=== PATIENT | female | born 1985 | race Caucasian/White ===

== ENCOUNTER 2018-10-10 14:28 | Emergency (ER) | payer OTHER, SELFPAY ==
[2018-10-10 14:35] VITALS: BP 117/74; PULSE 89; RESP 16; TEMP 37.3; O2SAT 98; BMI 31.8
--- NOTE | 2018-10-10 14:48 | DI.CT.S_ITS ---
PROCEDURE: CT HEAD/BRAIN WO CON INDICATIONS: In ED WR: Fell on monday, remembers nothing since, now a/o TECHNIQUE: Noncontrast 4.5 mm thick angled axial sections acquired from the foramen magnum to the vertex, with coronal and sagittal reformats. For radiation dose reduction, the following was used: automated exposure control, adjustment of mA and/or kV according to patient size. COMPARISON: [facility], MR, BRAIN W&WO CONTRAST, 08/23/2016, 14:11. FINDINGS: Image quality: Excellent. CSF spaces: Basal cisterns are patent. No extra-axial fluid collections. Ventricles are normal in size and shape. Brain: No midline shift. No intracranial masses or hemorrhage. Lamb-white matter interface is normal. Skull and face: Calvarium and visualized facial bones are intact, without suspicious lesions. Sinuses: Visualized sinuses and mastoids are clear. IMPRESSION: No acute intracranial disease process. Dictated by: Anjelica Bae MD, PhD on 10/10/2018 at 15:13 Approved by: Anjelica Bae MD, PhD on 10/10/2018 at 15:17
--- NOTE | 2018-10-10 16:36 | ED.BACK ---
HPI - Back Pain/Injury <SATYA Connelly - Last Filed: 10/10/18 22:16> General Chief Complaint: Back Pain/Injury Stated Complaint: stated hit back on Sat, in extreme pain Time Seen by Provider: 10/10/18 16:36 Source: patient Mode of arrival: ambulatory Limitations: no limitations History of Present Illness HPI Narrative: 33-year-old female with history of asthma that is an everyday smoker here for complaint of having pain into her middle of her back and also having a headache. She states that Monday late she was doing laundry and she was caring out a laundry basket from the laundry room when she accidentally bumped into a 2 by for next to the door frame and the middle of her back. She states she does not know if she hit her head. Although she reports that the next day she does not recall going to bed and folding laundry as or longer became folded her next the intact memory was later that evening when she woke up in bed. She denies any nausea vomiting. No fevers no chills. She is ambulatory into the emergency room. She denies any loss of bladder or bowel control.She reports increased pain with motion of the back area. She states that her memory is intact after the 1 day episode of memory loss. She denies any other injuries. MD Complaint: back pain Related Data Previous Rx's Medication Instructions Recorded albuterol sulfate HFA 90 2 inhalation INHALATION Q4-6H PRN 10/01/18 mcg/actuation aerosol inhaler #18 gram cyclobenzaprine 10 mg tablet 10 mg PO BEDTIME #30 tab 10/01/18 epinephrine 0.3 mg/0.3 mL See Rx Instructions IM ONCE #1 each 10/01/18 injection, auto-injector fluticasone 250 mcg-salmeterol 50 1 - 2 inhalation INHALATION BID 10/01/18 mcg/dose blistr powdr for #60 each inhalation ipratropium bromide 0.03 % nasal See Rx Instructions NASAL .PRN #30 10/01/18 spray ml prednisone 10 mg tablet See Rx Instructions PO DAILY #15 10/01/18 tab Allergies Allergy/AdvReac Type Severity Reaction Status Date / Time marijuana Allergy Verified 10/10/18 14:34 Review of Systems <SATYA Connelly - Last Filed: 10/10/18 22:16> Constitutional Denies chills, Denies fever(s), Denies lethargy and Denies weakness Eyes Denies change in vision, Denies eye discharge, Denies irritation and Denies loss of vision ENT Ears, Nose, Mouth, and Throat: Denies change in voice, Denies neck pain and Denies sore throat Cardiovascular Denies chest pain, Denies irregular heart rhythm, Denies lightheadedness, Denies palpitations, Denies dyspnea, Denies dyspnea on exertion and Denies orthopnea Respiratory Denies cough, Denies dyspnea, Denies dyspnea on exertion and Denies wheezing Genitourinary Denies hematuria, Denies flank pain, Denies urinary incontinence and Denies urinary urgency Musculoskeletal Denies neck pain Comments: Back pain Integumentary/Breasts Denies pruritus, Denies erythema, Denies rash and Denies wounds Neurologic Denies confusion, Denies loss of vision and Denies weakness Comments: headache Psychiatric Denies anxiety, Denies confusion, Denies depression, Denies homicidal ideation and Denies suicidal ideation Endocrine Denies palpitations Hematologic/Lymphatic Denies easy bruising Allergic/Immunologic Denies wheezing PFSH <SATYA Connelly - Last Filed: 10/10/18 22:16> Social History Smoking Status: Current every day smoker Social History Smoking Status: Current every day smoker Exam <SATYA Connelly - Last Filed: 10/10/18 22:16> Initial Vital Signs Initial Vital Signs: Vital Signs Temperature 99.2 F 10/10/18 14:35 Pulse Rate 89 10/10/18 14:35 Respiratory Rate 16 10/10/18 14:35 Blood Pressure 117/74 10/10/18 14:35 Pulse Oximetry 98 10/10/18 14:35 Const General: cooperative and well developed Nutritional Appearance: well nourished Orientation: alert, awake, oriented x3 and not confused [facility] Head: normal to inspection, normocephalic, atraumatic, No [place]'s sign, No contusion, No hematoma, No laceration and scalp tenderness Mouth: oral mucosae normal and mucous membranes abnormal Eyes Conjunctivae: conjunctivae normal Sclera: sclerae normal Pupils: PERRL EOM: EOM intact bilaterally Resp Effort & Inspection: normal respiratory effort, able to speak in complete sentences, no respiratory distress and no use of accessory muscles Auscultation: clear to auscultation bilaterally, no rales, no rhonchi and no wheezes Cardio Rate: regular rate Rhythm: regular rhythm Heart Sounds: no click, no gallops, no murmurs and no rubs Pulses: normal peripheral pulses Back/Spine/Pelvis Other: back with no significant signs of trauma. Tenderness on palpation to the thoracic paraspinals. She is also tender to midline of the thoracic spine. Distal sensation is intact. Distal pulses are intact. Distal range of motion is intact. Skin General: no rashes or lesions noted, No jaundice and No petechiae Neuro General: alert, oriented x3, gait normal and no focal motor deficits Speech: speech normal <Vladimir Willoughby DO - Last Filed: 10/11/18 07:11> Initial Vital Signs Initial Vital Signs: Vital Signs Temperature 99.2 F 10/10/18 14:35 Pulse Rate 89 10/10/18 14:35 Respiratory Rate 16 10/10/18 14:35 Blood Pressure 117/74 10/10/18 14:35 Pulse Oximetry 98 10/10/18 14:35 Course <SATYA Connelly - Last Filed: 10/10/18 22:16> Orders Ordered: ED Orders 10/10/18 14:48 CT head/brain wo con Stat 10/10/18 16:53 XR thoracic spine 3V Stat Vital Signs - 8 hr 10/10/18 14:35 10/10/18 17:49 Temperature 99.2 F Pulse Rate 89 68 Respiratory Rate 16 14 Blood Pressure 117/74 Blood Pressure [Left Arm] 110/65 Pulse Oximetry 98 98 <DO Raul Persaud Last Filed: 10/11/18 07:11> Orders Ordered: ED Orders 10/10/18 14:48 CT head/brain wo con Stat 10/10/18 16:53 XR thoracic spine 3V Stat Vital Signs - 8 hr 10/10/18 14:35 10/10/18 17:49 Temperature 99.2 F Pulse Rate 89 68 Respiratory Rate 16 14 Blood Pressure 117/74 Blood Pressure [Left Arm] 110/65 Pulse Oximetry 98 98 MDM - Back Pain/Injury <SATYA Connelly - Last Filed: 10/10/18 22:16> Imaging Data CT scan - head: Radiologist's impression: [address] [address] [address] Scan Report Signed Patient: Manisha Moya#: [id number] : 1985Acct:[id number] Age/Sex: 33 / FDate of Service: 10/10/18 Loc: ED Accession Number: [id number] Procedure: CT head/brain wo con Ordering Provider: Vladimir Willoughby D.O. PROCEDURE: CT HEAD/BRAIN WO CON INDICATIONS: In ED WR: Fell on monday, remembers nothing since, now a/o TECHNIQUE: Noncontrast 4.5 mm thick angled axial sections acquired from the foramen magnum to the vertex, with coronal and sagittal reformats. For radiation dose reduction, the following was used: automated exposure control, adjustment of mA and/or kV according to patient size. COMPARISON: [facility], MR, BRAIN W&WO CONTRAST, 08/23/2016, 14:11. FINDINGS: Image quality: Excellent. CSF spaces: Basal cisterns are patent. No extra-axial fluid collections. Ventricles are normal in size and shape. Brain: No midline shift. No intracranial masses or hemorrhage. Lamb-white matter interface is normal. Skull and face: Calvarium and visualized facial bones are intact, without suspicious lesions. Sinuses: Visualized sinuses and mastoids are clear. IMPRESSION: No acute intracranial disease process. Dictated by: Anjelica Bae MD, PhD on 10/10/2018 at 15:13 Approved by: Anjelica Bae MD, PhD on 10/10/2018 at 15:17 Thoracic spine x-ray : Radiologist's impression: [address] [address] XRay Report Signed Patient: Manisha Moya#: [id number] : 1985Acct:[id number] Age/Sex: 33 / FDate of Service: 10/10/18 Loc: ED Accession Number: [id number] Procedure: XR thoracic spine 3V Ordering Provider: Cedric Roe PROCEDURE: XR THORACIC SPINE 3V INDICATIONS: accidentally collided with door frame on thoracic spine TECHNIQUE: 3 views of the thoracic spine were acquired. COMPARISON: None. FINDINGS: Bones: No fractures or dislocations. No suspicious bony lesions. 12 pairs of ribs are noted, and appear intact where visualized. Soft tissues: No paravertebral stripe thickening. IMPRESSION: No acute compression fracture or spondylolisthesis in thoracic spine. Dictated by: Tomasz Hernández M.D. on 10/10/2018 at 17:06 Approved by: Tomasz Hernández M.D. on 10/10/2018 at 17:07 [facility] Narrative Medical decision making narrative: CT scan of the head was obtained was unremarkable. No acute findings. X-ray of the thoracic spine was also obtained was negative for any acute findings. Suspect that there may have been a injury to the head causing concussion and subsequent short-term memory loss that occurred several days ago. Pain into back presents as sprain/contusion to her thoracic spine. Will have her continue using ibuprofen and her as already prescribed cyclobenzaprine for her symptoms. Gentle range of motion to painful areas of her back. Follow up with primary care for the next few days for re-evaluation. Head injury instructions are provided with warning signs return to the emergency room. Discharge Plan Departure Patient Disposition: Home Clinical Impression: Concussion Qualifiers: Encounter type: initial encounter Loss of consciousness presence/duration: without LOC Qualified Code(s): S06.0X0A - Concussion without loss of consciousness, initial encounter Back pain Qualifiers: Back pain location: thoracic back pain Chronicity: acute Back pain laterality: bilateral Qualified Code(s): M54.6 - Pain in thoracic spine Discharge Date/Time: 10/10/18 18:07 Interventions: ED Discharge Assessment Last Done: 10/10/18 18:07 Instructions: Concussion, Closed Head Injury, Thoracic Back Pain Activity Restrictions/Additional Instructions: CT of the head was obtained and was negative for any acute findings per x-ray of the thoracic spine was obtained was also negative for any acute findings. Believe there is a good chance that she may have hit your head causing concussion that could have given you your memory lapse for Monday. Good thing is that you have remembered everything since then. Continue using ibuprofen and muscle relaxers as needed for discomfort and muscle spasm. Rest area. Gentle range of motion to painful areas to keep muscles loose. Follow up with primary care provider here in the next few days for re-evaluation. For any worsening symptoms return emergency room. Head injury instructions are provided with warning signs return to the emergency room. Prescriptions: No Action cyclobenzaprine 10 mg tablet 10 mg PO BEDTIME Qty: 30 RF: 0 prednisone 10 mg tablet See Rx Instructions PO DAILY Qty: 15 RF: 0 epinephrine [EpiPen] 0.3 mg/0.3 mL auto-injector See Rx Instructions IM ONCE Qty: 1 RF: 0 Advair Diskus 250-50 mcg/dose blister with device 1 - 2 inhalation INHALATION BID Qty: 60 RF: 0 Ventolin HFA 90 mcg/actuation HFA aerosol inhaler 2 inhalation INHALATION Q4-6H PRN (Reason: shortness of breath) Qty: 18 RF: 0 ipratropium bromide 0.03 % spray,non-aerosol See Rx Instructions NASAL .PRN Qty: 30 RF: 0 Referrals: [facility] [Provider Group] Stand Alone Forms: Work Release Note <Vladimir Willoughby DO - Last Filed: 10/11/18 07:11> Cosign ED Attending Loc Attestation: I was available for consultation during this patient's emergency department encounter
--- NOTE | 2018-10-10 16:39 | ED_ITS ---
HPI - Back Pain/Injury <SATYA Connelly - Last Filed: 10/10/18 22:16> General Chief Complaint: Back Pain/Injury Stated Complaint: stated hit back on Sat, in extreme pain Time Seen by Provider: 10/10/18 16:36 Source: patient Mode of arrival: ambulatory Limitations: no limitations History of Present Illness HPI Narrative: 33-year-old female with history of asthma that is an everyday smoker here for complaint of having pain into her middle of her back and also having a headache. She states that Monday late she was doing laundry and she was caring out a laundry basket from the laundry room when she accidentally bumped into a 2 by for next to the door frame and the middle of her back. She states she does not know if she hit her head. Although she reports that the next day she does not recall going to bed and folding laundry as or longer became folded her next the intact memory was later that evening when she woke up in bed. She denies any nausea vomiting. No fevers no chills. She is ambulatory into the emergency room. She denies any loss of bladder or bowel control.She reports increased pain with motion of the back area. She states that her memory is intact after the 1 day episode of memory loss. She denies any other injuries. MD Complaint: back pain Related Data Previous Rx's Medication Instructions Recorded albuterol sulfate HFA 90 2 inhalation INHALATION Q4-6H PRN 10/01/18 mcg/actuation aerosol inhaler #18 gram cyclobenzaprine 10 mg tablet 10 mg PO BEDTIME #30 tab 10/01/18 epinephrine 0.3 mg/0.3 mL See Rx Instructions IM ONCE #1 each 10/01/18 injection, auto-injector fluticasone 250 mcg-salmeterol 50 1 - 2 inhalation INHALATION BID 10/01/18 mcg/dose blistr powdr for #60 each inhalation ipratropium bromide 0.03 % nasal See Rx Instructions NASAL .PRN #30 10/01/18 spray ml prednisone 10 mg tablet See Rx Instructions PO DAILY #15 10/01/18 tab Allergies Allergy/AdvReac Type Severity Reaction Status Date / Time marijuana Allergy Verified 10/10/18 14:34 Review of Systems <SATYA Connelly - Last Filed: 10/10/18 22:16> Constitutional Denies chills, Denies fever(s), Denies lethargy and Denies weakness Eyes Denies change in vision, Denies eye discharge, Denies irritation and Denies loss of vision ENT Ears, Nose, Mouth, and Throat: Denies change in voice, Denies neck pain and Denies sore throat Cardiovascular Denies chest pain, Denies irregular heart rhythm, Denies lightheadedness, Denies palpitations, Denies dyspnea, Denies dyspnea on exertion and Denies orthopnea Respiratory Denies cough, Denies dyspnea, Denies dyspnea on exertion and Denies wheezing Genitourinary Denies hematuria, Denies flank pain, Denies urinary incontinence and Denies urinary urgency Musculoskeletal Denies neck pain Comments: Back pain Integumentary/Breasts Denies pruritus, Denies erythema, Denies rash and Denies wounds Neurologic Denies confusion, Denies loss of vision and Denies weakness Comments: headache Psychiatric Denies anxiety, Denies confusion, Denies depression, Denies homicidal ideation and Denies suicidal ideation Endocrine Denies palpitations Hematologic/Lymphatic Denies easy bruising Allergic/Immunologic Denies wheezing PFSH <SATYA Connelly - Last Filed: 10/10/18 22:16> Social History Smoking Status: Current every day smoker Social History Smoking Status: Current every day smoker Exam <SATYA Connelly - Last Filed: 10/10/18 22:16> Initial Vital Signs Initial Vital Signs: Vital Signs Temperature 99.2 F 10/10/18 14:35 Pulse Rate 89 10/10/18 14:35 Respiratory Rate 16 10/10/18 14:35 Blood Pressure 117/74 10/10/18 14:35 Pulse Oximetry 98 10/10/18 14:35 Const General: cooperative and well developed Nutritional Appearance: well nourished Orientation: alert, awake, oriented x3 and not confused [facility] Head: normal to inspection, normocephalic, atraumatic, No [place]'s sign, No contusion, No hematoma, No laceration and scalp tenderness Mouth: oral mucosae normal and mucous membranes abnormal Eyes Conjunctivae: conjunctivae normal Sclera: sclerae normal Pupils: PERRL EOM: EOM intact bilaterally Resp Effort & Inspection: normal respiratory effort, able to speak in complete sentences, no respiratory distress and no use of accessory muscles Auscultation: clear to auscultation bilaterally, no rales, no rhonchi and no wheezes Cardio Rate: regular rate Rhythm: regular rhythm Heart Sounds: no click, no gallops, no murmurs and no rubs Pulses: normal peripheral pulses Back/Spine/Pelvis Other: back with no significant signs of trauma. Tenderness on palpation to the thoracic paraspinals. She is also tender to midline of the thoracic spine. Distal sensation is intact. Distal pulses are intact. Distal range of motion is intact. Skin General: no rashes or lesions noted, No jaundice and No petechiae Neuro General: alert, oriented x3, gait normal and no focal motor deficits Speech: speech normal <Vladimir Willoughby DO - Last Filed: 10/11/18 07:11> Initial Vital Signs Initial Vital Signs: Vital Signs Temperature 99.2 F 10/10/18 14:35 Pulse Rate 89 10/10/18 14:35 Respiratory Rate 16 10/10/18 14:35 Blood Pressure 117/74 10/10/18 14:35 Pulse Oximetry 98 10/10/18 14:35 Course <SATYA Connelly - Last Filed: 10/10/18 22:16> Orders Ordered: ED Orders 10/10/18 14:48 CT head/brain wo con Stat 10/10/18 16:53 XR thoracic spine 3V Stat Vital Signs - 8 hr 10/10/18 14:35 10/10/18 17:49 Temperature 99.2 F Pulse Rate 89 68 Respiratory Rate 16 14 Blood Pressure 117/74 Blood Pressure [Left Arm] 110/65 Pulse Oximetry 98 98 <DO Raul Persaud Last Filed: 10/11/18 07:11> Orders Ordered: ED Orders 10/10/18 14:48 CT head/brain wo con Stat 10/10/18 16:53 XR thoracic spine 3V Stat Vital Signs - 8 hr 10/10/18 14:35 10/10/18 17:49 Temperature 99.2 F Pulse Rate 89 68 Respiratory Rate 16 14 Blood Pressure 117/74 Blood Pressure [Left Arm] 110/65 Pulse Oximetry 98 98 MDM - Back Pain/Injury <SATYA Connelly - Last Filed: 10/10/18 22:16> Imaging Data CT scan - head: Radiologist's impression: [address] [address] [address] Scan Report Signed Patient: Manisha Moya#: [id number] : 1985Acct:[id number] Age/Sex: 33 / FDate of Service: 10/10/18 Loc: ED Accession Number: [id number] Procedure: CT head/brain wo con Ordering Provider: Vladimir Willoughby D.O. PROCEDURE: CT HEAD/BRAIN WO CON INDICATIONS: In ED WR: Fell on monday, remembers nothing since, now a/o TECHNIQUE: Noncontrast 4.5 mm thick angled axial sections acquired from the foramen magnum to the vertex, with coronal and sagittal reformats. For radiation dose reduction, the following was used: automated exposure control, adjustment of mA and/or kV according to patient size. COMPARISON: [facility], MR, BRAIN W&WO CONTRAST, 08/23/2016, 14:11. FINDINGS: Image quality: Excellent. CSF spaces: Basal cisterns are patent. No extra-axial fluid collections. Ventricles are normal in size and shape. Brain: No midline shift. No intracranial masses or hemorrhage. Lamb-white matter interface is normal. Skull and face: Calvarium and visualized facial bones are intact, without suspicious lesions. Sinuses: Visualized sinuses and mastoids are clear. IMPRESSION: No acute intracranial disease process. Dictated by: Anjelica Bae MD, PhD on 10/10/2018 at 15:13 Approved by: Anjelica Bae MD, PhD on 10/10/2018 at 15:17 Thoracic spine x-ray : Radiologist's impression: [address] [address] XRay Report Signed Patient: Manisha Moya#: [id number] : 1985Acct:[id number] Age/Sex: 33 / FDate of Service: 10/10/18 Loc: ED Accession Number: [id number] Procedure: XR thoracic spine 3V Ordering Provider: Cedric Roe PROCEDURE: XR THORACIC SPINE 3V INDICATIONS: accidentally collided with door frame on thoracic spine TECHNIQUE: 3 views of the thoracic spine were acquired. COMPARISON: None. FINDINGS: Bones: No fractures or dislocations. No suspicious bony lesions. 12 pairs of ribs are noted, and appear intact where visualized. Soft tissues: No paravertebral stripe thickening. IMPRESSION: No acute compression fracture or spondylolisthesis in thoracic spine. Dictated by: Tomasz Hernández M.D. on 10/10/2018 at 17:06 Approved by: Tomasz Hernández M.D. on 10/10/2018 at 17:07 [facility] Narrative Medical decision making narrative: CT scan of the head was obtained was unremarkable. No acute findings. X-ray of the thoracic spine was also obtained was negative for any acute findings. Suspect that there may have been a injury to the head causing concussion and subsequent short-term memory loss that occurred several days ago. Pain into back presents as sprain/contusion to her thoracic spine. Will have her continue using ibuprofen and her as already prescribed cyclobenzaprine for her symptoms. Gentle range of motion to painful areas of her back. Follow up with primary care for the next few days for re- evaluation. Head injury instructions are provided with warning signs return to the emergency room. Discharge Plan Departure Patient Disposition: Home Clinical Impression: Concussion Qualifiers: Encounter type: initial encounter Loss of consciousness presence/duration: without LOC Qualified Code(s): S06.0X0A - Concussion without loss of consciousness, initial encounter Back pain Qualifiers: Back pain location: thoracic back pain Chronicity: acute Back pain laterality: bilateral Qualified Code(s): M54.6 - Pain in thoracic spine Discharge Date/Time: 10/10/18 18:07 Interventions: ED Discharge Assessment Last Done: 10/10/18 18:07 Instructions: Concussion, Closed Head Injury, Thoracic Back Pain Activity Restrictions/Additional Instructions: CT of the head was obtained and was negative for any acute findings per x-ray of the thoracic spine was obtained was also negative for any acute findings. Believe there is a good chance that she may have hit your head causing concussion that could have given you your memory lapse for Monday. Good thing is that you have remembered everything since then. Continue using ibuprofen and muscle relaxers as needed for discomfort and muscle spasm. Rest area. Gentle range of motion to painful areas to keep muscles loose. Follow up with primary care provider here in the next few days for re-evaluation. For any worsening symptoms return emergency room. Head injury instructions are provided with warning signs return to the emergency room. Prescriptions: No Action cyclobenzaprine 10 mg tablet 10 mg PO BEDTIME Qty: 30 RF: 0 prednisone 10 mg tablet See Rx Instructions PO DAILY Qty: 15 RF: 0 epinephrine [EpiPen] 0.3 mg/0.3 mL auto-injector See Rx Instructions IM ONCE Qty: 1 RF: 0 Advair Diskus 250-50 mcg/dose blister with device 1 - 2 inhalation INHALATION BID Qty: 60 RF: 0 Ventolin HFA 90 mcg/actuation HFA aerosol inhaler 2 inhalation INHALATION Q4-6H PRN (Reason: shortness of breath) Qty: 18 RF: 0 ipratropium bromide 0.03 % spray,non-aerosol See Rx Instructions NASAL .PRN Qty: 30 RF: 0 Referrals: [facility] [Provider Group] Stand Alone Forms: Work Release Note <Vladimir Willoughby DO - Last Filed: 10/11/18 07:11> Cosign ED Attending Loc Attestation: I was available for consultation during this patient's emergency department encounter
--- NOTE | 2018-10-10 16:42 | PC.NURSE ---
pt reports that five days ago she bumped into a 2x4 that struck her in the lower back. Since that time she c/o waxing/waning lt side arm/facial numbness, generalized headache, nausea, photophobia, visual changes that she describes as lines of triangles, and midline back pain that on exam is tender for the entire length of her spine with very light palpation. She also states that there is a 24 hour period one day following the event of which she has no memory. She is ambulatory ind with a steady gait, moving all ext with equal strength, limited participation in exam r/t unable to open eyes without discomfort/headache, alert/oriented x3 without obvious neurological deficit.
--- NOTE | 2018-10-10 16:53 | DI.RAD.S_ITS ---
PROCEDURE: XR THORACIC SPINE 3V INDICATIONS: accidentally collided with door frame on thoracic spine TECHNIQUE: 3 views of the thoracic spine were acquired. COMPARISON: None. FINDINGS: Bones: No fractures or dislocations. No suspicious bony lesions. 12 pairs of ribs are noted, and appear intact where visualized. Soft tissues: No paravertebral stripe thickening. IMPRESSION: No acute compression fracture or spondylolisthesis in thoracic spine. Dictated by: Tomasz Hernández M.D. on 10/10/2018 at 17:06 Approved by: Tomasz Hernández M.D. on 10/10/2018 at 17:07
[2018-10-10 17:49] VITALS: BP 110/65; PULSE 68; RESP 14; O2SAT 98
== END 2018-10-10 18:07 | disposition home or self-care (01) ==
PROVIDERS: Emergency Provider Nurse Practitioner Family; Family Provider Physician Assistant Medical
DX: S06.0X0A Concussion without loss of consciousness, initial encounter (principal); M54.16 Radiculopathy, lumbar region; W22.8XXA Striking against or struck by other objects, initial encounter
CPT/HCPCS: 70450; 72072; 99282; 99284

== ENCOUNTER 2019-08-21 08:05 | Emergency (ER) | payer OTHER, SELFPAY ==
[2019-08-21 08:12] VITALS: BP 129/74; PULSE 86; RESP 16; TEMP 36.9; O2SAT 99; BMI 32.4
--- NOTE | 2019-08-21 08:27 | DI.US.S_ITS ---
PROCEDURE: US ABDOMEN LIMITED INDICATIONS: Left groin pain, ? hernia TECHNIQUE: Real-time focused scanning was performed of the abdomen, with image documentation. COMPARISON: [facility], , ABDOMEN COMPLETE, 07/25/2016, 10:39. FINDINGS: Scanning is performed within the left lower quadrant/left groin at the area of pain, as indicated by the patient. No findings of hernia or masses can be seen, including with Valsalva maneuver. No enlarged lymph nodes or fluid collections are detected. IMPRESSION: Negative study, without hernia. Dictated by: Arthur Danielle M.D. on 08/21/2019 at 8:17 Approved by: Arthur Danielle M.D. on 08/21/2019 at 8:18
--- NOTE | 2019-08-21 08:28 | ED.ABDPAIN ---
HPI - Abdominal Pain General Chief Complaint: Abdominal Pain Stated Complaint: cough real bad and left side of groin hurts Time Seen by Provider: 08/21/19 08:17 Source: patient and old records reviewed Mode of arrival: Ambulatory Limitations: no limitations History of Present Illness HPI narrative: This is a 34-year-old female who comes to the emergency department with complaint of left groin pain. Patient states she has had a cough from upper respiratory infection for the last several weeks. Yesterday she was coughing particularly hard and felt sudden pain in the left groin. She states that she felt sort of like there was a lump but she can't feel or see a lump. Patient states every time she coughs she has significant discomfort in that area. She states she also thought that she had pulled a rib recently from coughing. Patient states that the pain does radiate down her leg towards her toes. She denies any new back pain or changes to her back pain but states she has chronic back issues. She states the pain doesn't seem to be coming from her back or hip. Patient denies fevers. Denies any other chest pain. She occasionally feels short of breath and has been using her inhaler more frequently secondary to her asthma flaring. She states that she doesn't feel like she is wheezy or tight at this time. She denies any issues with bowel movements or urination. No redness or other skin changes. She states she has had dental work but no prior surgeries otherwise. States she has history of asthma and, states when she drinks water and certain foods it always makes her vomit but she can eat other foods without issue she states this is a longstanding chronic issue. Related Data Previous Rx's Medication Instructions Recorded albuterol sulfate 90 mcg/actuation 2 inhalation INHALATION Q4-6H PRN 10/01/18 aerosol inhaler #18 gram cyclobenzaprine 10 mg tablet 10 mg PO BEDTIME #30 tab 10/01/18 epinephrine 0.3 mg/0.3 mL See Rx Instructions IM ONCE #1 each 10/01/18 injection, auto-injector fluticasone 250 mcg-salmeterol 50 1 - 2 inhalation INHALATION BID 10/01/18 mcg/dose blistr powdr for #60 each inhalation ipratropium bromide 0.03 % nasal See Rx Instructions NASAL .PRN #30 10/01/18 spray ml prednisone 10 mg tablet See Rx Instructions PO DAILY #15 10/01/18 tab acetaminophen-codeine 1 tab PO TID PRN #10 tab 08/21/19 [Tylenol-Codeine #3] Allergies Allergy/AdvReac Type Severity Reaction Status Date / Time marijuana Allergy Verified 08/21/19 08:28 Review of Systems Review of Systems ROS Unobtainable: All systems reviewed & are unremarkable except as noted in HPI and below Patient History Social History Smoking Status: Current every day smoker Smoking Status: Current every day smoker Exam Narrative Exam Narrative: GENERAL: Alert and oriented x three, moderately obese, well-appearing female in mild distress. HEENT: Head normocephalic, atraumatic, EOMI, pupils reactive, face symmetric, moist mucous membranes NECK: Supple, full range of motion CARDIOVASCULAR: Regular rate and rhythm without murmurs, rubs or gallops. RESPIRATORY: Breath sounds equal bilaterally, no wheezes rales or rhonchi. ABDOMEN: Soft, nontender except for moderate discomfort in the left inguinal region. Unable to palpate a hernia or mass and discomfort radiates into upper thigh. Normoactive bowel sounds all 4 quadrants. No guarding or rebound, rigidity, no mass : No CVA tenderness EXTREMITIES: Normal range of motion, patient is nontender to hip. Patient does have some increased pain with bending over and flexing at the hip on the left. No clubbing or edema. Neurovascularly intact. 2+ pulses bilaterally. No cyanosis, no pallor or erythema of the lower extremity. BACK: No cervical, thoracic or lumbar vertebral point tenderness. 5/5 muscle strength in lower extremities. NEUROLOGICAL: Cranial nerves II through XII grossly intact. Moving all extremities SKIN: Warm, dry, no petechiae, no rashes or lesions. Initial Vital Signs Initial Vital Signs: Vital Signs Temperature 98.4 F 08/21/19 08:12 Pulse Rate 86 08/21/19 08:12 Respiratory Rate 16 08/21/19 08:12 Blood Pressure 129/74 08/21/19 08:12 Pulse Oximetry 99 08/21/19 08:12 Course Orders Ordered: ED Orders 08/21/19 08:27 US abdomen limited Stat 08/21/19 08:41 Complete Blood Count AUTO DIFF Stat Comprehensive Metabolic Panel Stat Lipase Stat 08/21/19 09:30 Test Urine Stat Urinalysis and Microscopic Stat Urine Culture Stat Discontinued Medications Sodium Chloride (Normal Saline 0.9%) 1,000 mls @ 1,000 mls/hr IV BOLUS ONE Stop: 08/21/19 09:26 Last Infusion: 08/21/19 09:40 Dose: 0 mls/hr Documented by: Admin: 08/21/19 08:46 Dose: 1,000 mls/hr Documented by: PENELOPE Ketorolac Tromethamine (Toradol) 30 mg IV NOW ONE Stop: 08/21/19 08:28 Last Admin: 08/21/19 08:46 Dose: 30 mg Documented by: PENELOPE Vital Signs Vital signs: Vital Signs - 8 hr 08/21/19 08:12 08/21/19 09:57 Temperature 98.4 F Pulse Rate 86 84 Respiratory Rate 16 16 Blood Pressure 129/74 117/84 Pulse Oximetry 99 97 MDM - Abdominal Pain Lab Data Attestation: I reviewed the patient's lab results. Result diagrams: 08/21/19 08:41 08/21/19 08:41 Labs: Lab Results 08/21/19 08/21/19 08/21/19 Range/Units 08:41 08:41 09:30 WBC 11.5 H (4.5-11.0) X10^3/uL RBC 4.40 (4.0-5.2) X10^6/uL Hgb 12.7 (12.0-16.0) g/dL Hct 38.0 (36-46) % MCV 86.3 (80-100) fL MCH 29.0 (26-34) PG MCHC 33.6 (30-36) % RDW 14.4 (11.6-14.8) % Plt Count 314 (150-400) X10^3/uL Neut % (Auto) 73.6 (50-75) % Lymph % (Auto) 17.9 L (25-40) % [place] % (Auto) 6.7 (3-14) % Eos % (Auto) 1.4 L (2-4) % Baso % (Auto) 0.4 (0-2) % Neut # (Auto) 8400 H (6501-7755) /uL Lymph # (Auto) 2100 (7330-8908) /uL [place] # (Auto) 800 (0-900) /uL Eos # (Auto) 200 (0-450) /uL Baso # (Auto) 100 (0-100) /uL Sodium 139 (137-145) mmol/L Potassium 3.9 (3.4-5.1) mmol/L Chloride 105 (98-107) mmol/L Carbon Dioxide 25 (22-32) mmol/L BUN 16 (7-17) mg/dL Creatinine 0.70 (0.52-1.04) mg/dL Estimated GFR > 60.0 (>60) mL/min BUN/Creatinine Ratio 22.9 H (6-22) Glucose 93 (70-100) mg/dL Calcium 9.0 (8.4-10.2) mg/dL Total Bilirubin 0.4 (0.2-1.3) mg/dL AST 33 (14-36) IU/L ALT 35 H (<35) IU/L Alkaline Phosphatase 82 (38-126) U/L Total Protein 7.2 (6.3-8.2) g/dL Albumin 4.3 (3.5-5.0) g/dL Globulin 2.9 (1.7-4.1) g/dL Albumin/Globulin Ratio 1.5 (1.0-2.8) Lipase 48 (23-300) U/L Urine Color Yellow Urine Appearance Sl cloudy Urine pH 5.0 (4.5-8.0) Ur Specific [place] 1.025 (1.000-1.035) Urine Protein Negative (Negative) Urine Glucose (UA) Negative (Negative) g/dL Urine Ketones Negative (NEGATIVE) Urine Occult Blood 2+ H (Negative) Urine Nitrate Negative (Negative) Urine Bilirubin Negative (NEGATIVE) Urine Urobilinogen 0.2 (0.2) E.U./dL Ur Leukocyte Esterase 1+ H (NEGATIVE) Urine RBC 1-5/hpf (0-5/HPF) Urine WBC 10-30/hpf H (0-5/HPF) Ur Squamous Epith Cells 1-5 /hpf (0-5/HPF) Urine Bacteria Moderate (10-30) H (None) Ur Culture Indicated? Specimen cultured Urine Test (Negative) 08/21/19 Range/Units 09:30 WBC (4.5-11.0) X10^3/uL RBC (4.0-5.2) X10^6/uL Hgb (12.0-16.0) g/dL Hct (36-46) % MCV (80-100) fL MCH (26-34) PG MCHC (30-36) % RDW (11.6-14.8) % Plt Count (150-400) X10^3/uL Neut % (Auto) (50-75) % Lymph % (Auto) (25-40) % [place] % (Auto) (3-14) % Eos % (Auto) (2-4) % Baso % (Auto) (0-2) % Neut # (Auto) (3788-5292) /uL Lymph # (Auto) (4589-7644) /uL [place] # (Auto) (0-900) /uL Eos # (Auto) (0-450) /uL Baso # (Auto) (0-100) /uL Sodium (137-145) mmol/L Potassium (3.4-5.1) mmol/L Chloride (98-107) mmol/L Carbon Dioxide (22-32) mmol/L BUN (7-17) mg/dL Creatinine (0.52-1.04) mg/dL Estimated GFR (>60) mL/min BUN/Creatinine Ratio (6-22) Glucose (70-100) mg/dL Calcium (8.4-10.2) mg/dL Total Bilirubin (0.2-1.3) mg/dL AST (14-36) IU/L ALT (<35) IU/L Alkaline Phosphatase (38-126) U/L Total Protein (6.3-8.2) g/dL Albumin (3.5-5.0) g/dL Globulin (1.7-4.1) g/dL Albumin/Globulin Ratio (1.0-2.8) Lipase (23-300) U/L Urine Color Urine Appearance Urine pH (4.5-8.0) Ur Specific [place] (1.000-1.035) Urine Protein (Negative) Urine Glucose (UA) (Negative) g/dL Urine Ketones (NEGATIVE) Urine Occult Blood (Negative) Urine Nitrate (Negative) Urine Bilirubin (NEGATIVE) Urine Urobilinogen (0.2) E.U./dL Ur Leukocyte Esterase (NEGATIVE) Urine RBC (0-5/HPF) Urine WBC (0-5/HPF) Ur Squamous Epith Cells (0-5/HPF) Urine Bacteria (None) Ur Culture Indicated? Urine Test Negative (Negative) Imaging Data US - abdomen: Radiologist's Impression: [address] [address] Ultrasound Report Signed Patient: Manisha Moya#: [id number] : 1985Acct:[id number] Age/Sex: 34 / FDate of Service: 08/21/19 Loc: ED Accession Number: [id number] Procedure: US abdomen limited Ordering Provider: Katja Segura D.O. PROCEDURE: US ABDOMEN LIMITED INDICATIONS: Left groin pain, ? hernia TECHNIQUE: Real-time focused scanning was performed of the abdomen, with image documentation. COMPARISON: [facility], , ABDOMEN COMPLETE, 07/25/2016, 10:39. FINDINGS: Scanning is performed within the left lower quadrant/left groin at the area of pain, as indicated by the patient. No findings of hernia or masses can be seen, including with Valsalva maneuver. No enlarged lymph nodes or fluid collections are detected. MDM Narrative Medical decision making narrative: Ultrasound does not show any signs of hernia. Patient also has pain that radiates down her legs I suspect this is more related to chronic back issues in coughing and muscle strain potentially some nerve impingement. Discussed with patient plan for some pain control. Patient was given some Tylenol with codeine as this may be helpful for her cough as well as pain. She does not have any findings consistent with pneumonia or the require antibiotics at this time. Discussed labs show very mildly elevated white count, ALT of 35. urine was cultured shows leuks but no nitrates, urine preg is negative. Discharge Plan Departure Patient Disposition: Home Clinical Impression: Left groin pain, Cough Discharge Date/Time: 08/21/19 09:59 Activity Restrictions/Additional Instructions: Follow-up with primary care in the next week if your symptoms are not improving. Lab work does not show any major abnormalities, ultrasound imaging does not show any signs of hernia and there is no one noted on physical exam today. Take medication as prescribed this medication can make you sleepy do not drive, perform hazardous activities or make any major decisions while taking it. You may also take ibuprofen with this medication, you may take up to 800 mg every 8 hours as needed. You may return to the emergency department for fevers greater 100.4 F, rapidly worsening pain, new shortness of breath or chest pain, persistent vomiting, inability have a bowel movement, new weakness, numbness, loss of sensation or other new or concerning symptoms. Prescriptions: New acetaminophen-codeine [Tylenol-Codeine #3] 300-30 mg tablet 1 tab PO TID PRN (Reason: pain) Qty: 10 RF: 0 No Action cyclobenzaprine 10 mg tablet 10 mg PO BEDTIME Qty: 30 RF: 0 prednisone 10 mg tablet See Rx Instructions PO DAILY Qty: 15 RF: 0 epinephrine [EpiPen] 0.3 mg/0.3 mL auto-injector See Rx Instructions IM ONCE Qty: 1 RF: 0 Advair Diskus 250-50 mcg/dose blister with device 1 - 2 inhalation INHALATION BID Qty: 60 RF: 0 Ventolin HFA 90 mcg/actuation HFA aerosol inhaler 2 inhalation INHALATION Q4-6H PRN (Reason: shortness of breath) Qty: 18 RF: 0 ipratropium bromide 0.03 % spray,non-aerosol See Rx Instructions NASAL .PRN Qty: 30 RF: 0
[2019-08-21] MEDS: KETOROLAC 60 MG/2 ML VIAL 30 MG IV (08:46)
[2019-08-21] MEDS: SODIUM CHLORIDE 0.9% 1,000 ML 1000 ML IV (08:46)
[2019-08-21 08:48] LABS: Add Manual Diff / Slide Review NO; Basophils Absolute Auto 100 /uL (0-100); Basophils Percent Auto 0.4 % (0-2); Eosinophils Absolute Auto 200 /uL (0-450); Eosinophils Percent Auto 1.4 % (2-4); Hemoglobin 12.7 g/dL (12.0-16.0); Lymphocytes Absolute Auto 2100 /uL (1100-4500); Lymphocytes Percent Auto 17.9 % (25-40); Mean Corpuscular HGB Conc 33.6 % (30-36); Mean Corpuscular Volume 86.3 fL (80-100); Monocytes Absolute Auto 800 /uL (0-900); Monocytes Percent Auto 6.7 % (3-14); Neutrophils Absolute Auto 8400 /uL (1500-7000); Neutrophils Percent Auto 73.6 % (50-75); Platelet Count 314 X10^3/uL (150-400); Red Cell Distribution Width 14.4 % (11.6-14.8); White Blood Cell Count 11.5 X10^3/uL (4.5-11.0)
[2019-08-21 08:58] LABS: Alanine Aminotransferase 35 IU/L (<35); Albumin 4.3 g/dL (3.5-5.0); Albumin Globulin Ratio 1.5 (1.0-2.8); Alkaline Phosphatase 82 U/L (38-126); Aspartate Aminotransferase 33 IU/L (14-36); BUN Creatinine Ratio 22.9 (6-22); Bilirubin Total 0.4 mg/dL (0.2-1.3); Blood Urea Nitrogen 16 mg/dL (7-17); Carbon Dioxide 25 mmol/L (22-32); Chloride 105 mmol/L (98-107); Estimated Glomerular Filt Rate > 60.0 mL/min (>60); Globulin 2.9 g/dL (1.7-4.1); Glucose 93 mg/dL (70-100); HEMOLYSIS < 15 (0-50); Lipase 48 U/L (23-300); Potassium 3.9 mmol/L (3.4-5.1); Sodium 139 mmol/L (137-145); Total Protein 7.2 g/dL (6.3-8.2)
[2019-08-21 09:37] LABS: Appearance Urine UA SL CLOUDY; Bilirubin Urine UA NEGATIVE (NEGATIVE); Color Urine UA YELLOW; Glucose Urine UA NEGATIVE (Negative); Ketones Urine UA NEGATIVE (NEGATIVE); Leukocyte Esterase Urine UA 1+ (NEGATIVE); Nitrite Urine UA NEGATIVE (Negative); Occult Blood Urine UA 2+ (Negative); Protein Urine UA NEGATIVE (Negative); Specific Gravity Urine UA 1.025 (1.000-1.035); Urobilinogen Urine UA 0.2 E.U./dL (0.2)
[2019-08-21 09:46] LABS: Bacteria Urine Moderate (10-30); Culture Indicated Urine Specimen Cultured; RBC Urine 1-5/HPF (0-5/HPF); Squamous Epithelial Cell Urine 1-5 /HPF (0-5/HPF); WBC Urine 10-30/HPF (0-5/HPF)
[2019-08-21 09:47] LABS: Pregnancy Test Urine Negative (Negative)
[2019-08-21 09:57] VITALS: BP 117/84; PULSE 84; RESP 16; O2SAT 97
== END 2019-08-21 09:59 | disposition home or self-care (01) ==
PROVIDERS: Emergency Provider Emergency Medicine; Family Provider Physician Assistant Medical
DX: R10.32 Left lower quadrant pain (principal); R05 Cough; R11.10 Vomiting, unspecified
CPT/HCPCS: 36415; 76705; 80053; 81001; 81025; 83690; 85025; 87086; 96361; 96374; 99284; J1885

== ENCOUNTER 2019-08-24 03:51 | Emergency (ER) | payer OTHER, SELFPAY ==
[2019-08-24 03:57] VITALS: BP 129/52; PULSE 100; RESP 20; TEMP 37.9; O2SAT 97
--- NOTE | 2019-08-24 03:59 | DI.RAD.S_ITS ---
PROCEDURE: XR CHEST 2V INDICATIONS: cough, fever TECHNIQUE: 2 views of the chest were acquired. COMPARISON: None. FINDINGS: Surgical changes and devices: None. Lungs and pleura: Lungs are clear. No pleural effusions or pneumothorax. Mediastinum: Mediastinal contours are normal. Heart size is normal. Bones and chest wall: No suspicious bony abnormalities. Soft tissues appear unremarkable. IMPRESSION: Normal chest plain films, without infiltrates. Dictated by: Arthur Danielle M.D. on 08/24/2019 at 8:45 Approved by: Arthur Danielle M.D. on 08/24/2019 at 8:46
--- NOTE | 2019-08-24 03:59 | ED.FEVER ---
HPI - Fever General Chief Complaint: Upper Respiratory Symptoms Stated Complaint: coughing/feels like pins and needles everywhere Time Seen by Provider: 08/24/19 03:52 Source: patient Mode of arrival: Ambulatory Limitations: no limitations History of Present Illness HPI Narrative: 34-year-old female daily smoker returns to the emergency department for re-evaluation. She has multiple upper respiratory complaints including nasal congestion, sore throat, cough which is usually dry and hacking as well as general fatigue and body aches. She denies dysuria, frequency or urgency and she denies any change in bowel habits such as constipation or diarrhea. She has no vaginal bleeding or discharge. She was seen and evaluated a few days ago after having a coughing fit which resulted in a sudden onset of pain in her left groin and it complaints and concern of possible hernia. She had a very thorough evaluation including labs that showed a mild leukocytosis, and ultrasound which was unremarkable, urine that showed minor leuks which cultured out [place]. She feels fatigued and a bit under the weather and certainly no better. She states largely her symptoms have been present for approximately 1 month MD complaint: malaise and weakness Onset (ago): week(s) Associated symptoms: chills, myalgias, rhinorrhea, nasal congestion, sore throat, cough and abdominal pain Relieving factors: nothing Exacerbating factors: nothing Treatments prior to arrival fever: none Related Data Previous Rx's Medication Instructions Recorded albuterol sulfate 90 mcg/actuation 2 inhalation INHALATION Q4-6H PRN 10/01/18 aerosol inhaler #18 gram cyclobenzaprine 10 mg tablet 10 mg PO BEDTIME #30 tab 10/01/18 epinephrine 0.3 mg/0.3 mL See Rx Instructions IM ONCE #1 each 10/01/18 injection, auto-injector fluticasone 250 mcg-salmeterol 50 1 - 2 inhalation INHALATION BID 10/01/18 mcg/dose blistr powdr for #60 each inhalation ipratropium bromide 0.03 % nasal See Rx Instructions NASAL .PRN #30 10/01/18 spray ml prednisone 10 mg tablet See Rx Instructions PO DAILY #15 10/01/18 tab acetaminophen-codeine 1 tab PO TID PRN #10 tab 08/21/19 [Tylenol-Codeine #3] codeine-guaifenesin [Virtussin AC] 5 ml PO Q6H PRN #120 ml 08/24/19 ondansetron 4 mg PO Q8H PRN #7 tab 08/24/19 Allergies Allergy/AdvReac Type Severity Reaction Status Date / Time marijuana Allergy Verified 08/21/19 08:28 Review of Systems Constitutional Constitutional: Reports chills, Reports fatigue, Reports fever(s), Denies frequent falls, Denies lethargy and Reports weakness Eyes Eyes: Denies change in vision, Denies eye discharge, Denies irritation and Denies loss of vision ENT Ears, Nose, Mouth, and Throat: Denies change in voice, Denies dizziness, Reports nasal congestion, Denies neck pain and Reports sore throat Cardiovascular Cardiovascular: Denies chest pain, Denies irregular heart rhythm, Denies lightheadedness, Denies palpitations, Denies dyspnea, Denies dyspnea on exertion and Denies orthopnea Respiratory Respiratory: Reports cough, Denies dyspnea, Denies dyspnea on exertion and Denies wheezing Gastrointestinal Gastrointestinal: Denies abdominal pain (Left groin pain present with cough), Denies change in bowel habits, Denies diarrhea, Denies nausea and Denies vomiting Genitourinary Genitourinary: Denies hematuria, Denies flank pain, Denies urinary incontinence and Denies urinary urgency Musculoskeletal Musculoskeletal: Denies back pain, Denies muscle weakness, Denies neck pain, Denies numbness and Denies tingling Integumentary/Breasts Skin/Breast: Denies pruritus, Denies erythema, Denies rash and Denies wounds Neurologic Neurologic: Denies behavioral changes, Denies confusion, Denies dizziness, Denies frequent falls, Denies loss of vision, Denies numbness, Denies tingling and Reports weakness Psychiatric Psychiatric: Denies anxiety, Denies behavioral changes, Denies confusion, Denies depression, Denies homicidal ideation and Denies suicidal ideation Endocrine Endocrine: Reports fatigue, Denies flushing and Denies palpitations Hematologic/Lymphatic Hematologic/Lymphatic: Denies easy bruising Allergic/Immunologic Allergic/Immunologic: Denies urticaria and Denies wheezing Patient History Social History Smoking Status: Current every day smoker Smoking Status: Current every day smoker alcohol intake frequency: holidays/special occasions only Substance Use Type: does not use Exam Narrative Exam Narrative: GENERAL: [34] year old patient appears stated age. Well-nourished, well-developed patient, in mild distress. Sneezing, coughing. HEAD: Atraumatic. Normocephalic. EYES: Pupils equal round and reactive. Extraocular motions intact. No scleral icterus. No injection or drainage. ENT: Nose without bleeding, purulent drainage, clear drainage B/L nares. Throat with minimal erythema and swelling of tonsils. Airway patent. NECK: Trachea midline. Non tender CARDIOVASCULAR: Regular rate and rhythm without murmurs, gallops, or rubs. RESPIRATORY: Mild expiratory wheeze GASTROINTESTINAL: Abdomen soft, moderate tenderness in left groin, no mass. nondistended. EXTREMITIES: No edema or joint tenderness. BACK: Nontender without deformity or crepitance. No flank tenderness. NEURO: AOx3. SKIN: No rash or erythema of visible areas Initial Vital Signs Initial Vital Signs: Vital Signs Temperature 100.2 F H 08/24/19 03:57 Pulse Rate 100 H 08/24/19 03:57 Respiratory Rate 20 08/24/19 03:57 Blood Pressure 129/52 L 08/24/19 03:57 Pulse Oximetry 97 08/24/19 03:57 Course Orders Ordered: Discontinued Medications Ketorolac Tromethamine (Toradol) 60 mg IM NOW ONE Stop: 08/24/19 04:26 Last Admin: 08/24/19 04:31 Dose: 60 mg Documented by: DOTTY Vital Signs Vital signs: Vital Signs - 8 hr 08/24/19 03:57 Temperature 100.2 F H Pulse Rate 100 H Respiratory Rate 20 Blood Pressure 129/52 L Pulse Oximetry 97 MDM - Fever Lab Data Labs: Lab Results 08/24/19 Range/Units 04:00 Influenza A (RT-PCR) Flu a negative (NEGATIVE) Influenza B (RT-PCR) Flu b positive H (NEGATIVE) Point of Care Testing Rapid Strep A Negative Discharge Plan Departure Patient Disposition: Home Clinical Impression: Influenza B Discharge Date/Time: 08/24/19 05:14 Instructions: DI for Influenza -- Adult Activity Restrictions/Additional Instructions: *You have been diagnosed with [influenza B] *What to do: *Take medications as directed: [facility] *Follow up with your primary care provider in 2-3 days, call for an appointment. Let them know you were seen in the Emergency Department and that we ask that you be seen in follow up *Return to ER if you should have any new, worsening or concerning symptoms Prescriptions: New codeine-guaifenesin [Virtussin AC] 10-100 mg/5 mL liquid 5 ml PO Q6H PRN (Reason: cough) Qty: 120 RF: 0 ondansetron 4 mg tablet,disintegrating 4 mg PO Q8H PRN (Reason: nausea and vomiting) Qty: 7 RF: 0 No Action cyclobenzaprine 10 mg tablet 10 mg PO BEDTIME Qty: 30 RF: 0 prednisone 10 mg tablet See Rx Instructions PO DAILY Qty: 15 RF: 0 epinephrine [EpiPen] 0.3 mg/0.3 mL auto-injector See Rx Instructions IM ONCE Qty: 1 RF: 0 Advair Diskus 250-50 mcg/dose blister with device 1 - 2 inhalation INHALATION BID Qty: 60 RF: 0 Ventolin HFA 90 mcg/actuation HFA aerosol inhaler 2 inhalation INHALATION Q4-6H PRN (Reason: shortness of breath) Qty: 18 RF: 0 ipratropium bromide 0.03 % spray,non-aerosol See Rx Instructions NASAL .PRN Qty: 30 RF: 0 acetaminophen-codeine [Tylenol-Codeine #3] 300-30 mg tablet 1 tab PO TID PRN (Reason: pain) Qty: 10 RF: 0 Referrals: [facility] [Outside]
[2019-08-24] MEDS: KETOROLAC 60 MG/2 ML VIAL IM (04:31)
[2019-08-24 04:35] LABS: Influenza A - CEPHEID Flu A NEGATIVE (NEGATIVE); Influenza B - CEPHEID Flu B POSITIVE (NEGATIVE)
[2019-08-24 05:13] VITALS: BP 114/56; PULSE 82; RESP 17; O2SAT 94
== END 2019-08-24 05:14 | disposition home or self-care (01) ==
PROVIDERS: Emergency Provider Emergency Medicine; Family Provider Physician Assistant Medical
DX: J10.1 Influenza due to other identified influenza virus with other respiratory manifestations (principal); R05 Cough; F17.200 Nicotine dependence, unspecified, uncomplicated
CPT/HCPCS: 71046; 87502; 87880; 96372; 99283; J1885

== ENCOUNTER → 2019-08-30 08:48 | Outpatient (CLI) | payer OTHER, SELFPAY ==
[2019-08-30 09:50] LABS: Add Manual Diff / Slide Review NO; Basophils Absolute Auto 0 /uL (0-100); Basophils Percent Auto 0.4 % (0-2); Eosinophils Absolute Auto 200 /uL (0-450); Eosinophils Percent Auto 1.7 % (2-4); Hemoglobin 13.4 g/dL (12.0-16.0); Lymphocytes Absolute Auto 4100 /uL (1100-4500); Lymphocytes Percent Auto 40.3 % (25-40); Mean Corpuscular HGB Conc 34.2 % (30-36); Mean Corpuscular Hemoglobin 29.1 PG (26-34); Mean Corpuscular Volume 84.9 fL (80-100); Monocytes Absolute Auto 700 /uL (0-900); Monocytes Percent Auto 6.7 % (3-14); Neutrophils Absolute Auto 5200 /uL (1500-7000); Neutrophils Percent Auto 50.9 % (50-75); Platelet Count 316 X10^3/uL (150-400); Red Cell Distribution Width 13.9 % (11.6-14.8); White Blood Cell Count 10.2 X10^3/uL (4.5-11.0)
[2019-08-30 10:01] LABS: Cholesterol 152 mg/dL (140-199); HDL Cholesterol 31 mg/dL (40-60); LDL Cholesterol Calculated 66 mg/dL (<100); Triglycerides 277 mg/dL (35-150)
[2019-08-30 10:40] LABS: Vitamin D 25 Hydroxy (D3) 19.4 ng/mL (30.0-100.0)
[2019-08-30 10:49] LABS: Vitamin B12 898 pg/mL (239-931)
[2019-08-30 10:55] LABS: TSH w/ Reflex to FT4 1.15 uIU/mL (0.47-4.68)
== END ==
PROVIDERS: Family Provider Physician Assistant Medical; Visit Provider Family Medicine
DX: R11.0 Nausea (principal)
CPT/HCPCS: 36415; 80061; 82306; 82607; 84443; 85025

== ENCOUNTER → 2020-04-02 15:38 | Outpatient (CLI) | payer OTHER, SELFPAY ==
--- NOTE | 2020-04-02 | DI.CT.S_ITS ---
PROCEDURE: CT SINUS SCREEN WO CON INDICATIONS: OTHER CHRONIC SINUSITIS TECHNIQUE: Noncontrast 3.0 mm axial images acquired from the frontal sinuses to the mid-sella, with coronal and sagittal reformats. For radiation dose reduction, the following was used: automated exposure control, adjustment of mA and/or kV according to patient size. COMPARISON: None. FINDINGS: Image quality: Excellent. Maxillary Sinuses: No bony remodeling or destruction. Sinuses are clear. Ethmoid Air Cells: No bony remodeling or destruction. Sinuses are clear. Sphenoid Sinuses: No bony remodeling or destruction. Sinuses are clear. Frontal Sinuses: No bony remodeling or destruction. Sinuses are clear. Ostiomeatal Complexes: Ostiomeatal complexes are patent. No Kirk cells. Miscellaneous: Visualized intra-orbital contents are normal. No anyi bullosa or paradoxical turbinate curvature. No nasal septal deviation. No evidence of tonsillar or adenoidal enlargement. IMPRESSION: No findings of acute or chronic sinusitis. No evidence of adenoidal or tonsillar enlargement. Dictated by: Richie Garcia M.D. on 04/02/2020 at 15:53 Approved by: Richie Garcia M.D. on 04/02/2020 at 15:54
== END ==
PROVIDERS: Family Provider Physician Assistant Medical; PCP Family Medicine; Referring Provider Otolaryngology; Visit Provider Otolaryngology
DX: J32.8 Other chronic sinusitis (principal); R43.0 Anosmia
CPT/HCPCS: 70486

== ENCOUNTER → 2020-10-23 07:40 | Outpatient (CLI) | payer OTHER, SELFPAY ==
--- NOTE | 2020-10-23 07:40 | DI.RAD.S_ITS ---
PROCEDURE: FL BARIUM SWALLOW INDICATIONS: Persistent nausea COMPARISON: None. FINDINGS: Function: There is normal esophageal peristalsis. No elicited gastroesophageal reflux. . Morphology: Air-contrast images demonstrate normal mucosal morphology. Single contrast views show no esophageal strictures, extrinsic mass effects, or diverticula. Limited images of the stomach demonstrate normal appearance. IMPRESSION: Normal esophagram. No sign of mass, erosion or stricture. No reflux seen. Dictated by: Choco Meyer M.D. on 10/23/2020 at 9:49 Approved by: Choco Meyer M.D. on 10/23/2020 at 9:50
== END ==
PROVIDERS: Family Provider Physician Assistant Medical; PCP Family Medicine; Referring Provider Surgery; Visit Provider Surgery
DX: R11.0 Nausea (principal); K44.9 Diaphragmatic hernia without obstruction or gangrene; K21.9 Gastro-esophageal reflux disease without esophagitis
CPT/HCPCS: 74220

== ENCOUNTER → 2020-10-30 07:43 | Outpatient (CLI) | payer OTHER, SELFPAY ==
--- NOTE | 2020-10-30 07:45 | DI.NM.S_ITS ---
PROCEDURE: NM HIDA WITH CCK PHARMACEUTICAL: 5.0 mCi Tc-99m mebrofenin IV; 1.7 mcg CCK IV. INDICATIONS: Persistent nausea, epigastric pain TECHNIQUE: Following intravenous administration of Tc-99m mebrofenin, sequential anterior abdominal images were obtained. To evaluate the contractile response of the gallbladder in response to Cholecystokinin (CCK), sincalide (0.02 ?g/kg) was administered by slow intravenous infusion approximately 60 minutes after the administration of the radiopharmaceutical. Sequential imaging was continued for 30 minutes after the start of CCK infusion. Gallbladder ejection fraction was calculated. COMPARISON: US, ABDOMEN COMPLETE, 07/25/2016, 10:39. FINDINGS: Biliary scan: There is normal tracer uptake and excretion by the liver. There is normal visualization of the intrahepatic ducts, common bile duct, and gallbladder. There is normal tracer transit into the duodenum. CCK stimulation: There is poor contractile response of the gallbladder to CCK infusion. The calculated gallbladder ejection fraction is 24%; normal values are above 35%. It has been shown that any patient abdominal pain after CCK administration is related to the rate of CCK injection, rather than to any underlying gallbladder disease (Clinical Nuclear Medicine 2012; 37: 63-70. Journal of Nuclear Medicine 2014; 55: 1-9). IMPRESSION: 1. Normal filling of gallbladder. No evidence for acute cholecystitis. 2. Poor contractile response of gallbladder to CCK stimulation. This finding is consistent with gallbladder dyskinesia. Dictated by: Darcie De Leon M.D. on 10/30/2020 at 10:10 Approved by: Darcie De Leon M.D. on 10/30/2020 at 10:12
== END ==
LOC: NUCM 07:44
PROVIDERS: Family Provider Physician Assistant Medical; PCP Family Medicine; Referring Provider Surgery; Visit Provider Surgery
DX: R11.0 Nausea (principal); R10.13 Epigastric pain
CPT/HCPCS: 78227; A9537; J2805

== ENCOUNTER → 2020-12-04 10:35 | Outpatient (CLI) | payer OTHER, SELFPAY ==
[2020-12-04 11:11] LABS: COVID19 -Nasal RAPID Negative (Negative)
== END ==
PROVIDERS: Family Provider Physician Assistant Medical; PCP Family Medicine; Visit Provider Surgery
DX: Z20.822 Contact with and (suspected) exposure to COVID-19 (principal)
CPT/HCPCS: 87635; C9803

== ENCOUNTER → 2020-12-11 10:23 | Outpatient (CLI) | payer OTHER, SELFPAY ==
[2020-12-11 11:46] LABS: COVID19 -Nasal RAPID Negative (Negative)
== END ==
PROVIDERS: Family Provider Physician Assistant Medical; PCP Family Medicine; Visit Provider Surgery
DX: Z01.812 Encounter for preprocedural laboratory examination (principal); Z20.822 Contact with and (suspected) exposure to COVID-19
CPT/HCPCS: 87635; C9803

== ENCOUNTER 2020-12-14 06:31 | Day surgery (SDC) | payer OTHER, SELFPAY ==
[2020-12-14] VITALS (13 sets, daily range): BP systolic 95–120; BP diastolic 37–81; PULSE 57–92; RESP 9–99; TEMP 36.4–36.5; O2SAT 16–99; BMI 32.8
--- NOTE | 2020-12-14 | PATH_ITS ---
[facility] Accession Number: [id number] . 01 Material submitted: . gallbladder - GALLBLADDER . 02 Diagnosis: Gallbladder, Cholecystectomy: Chronic cholecystitis. No choleliths identified. Negative for dysplasia and malignancy. V 12/21/2020 1215 Local . 02 Electronically signed: . Amparo Monteiro MD, Pathologist NPI- [id number] . 01 Gross description: . The specimen is received in formalin labeled gallbladder and consists of a 6.5 x 3.0 x 3.0 cm intact gallbladder with a 0.2 cm in diameter cystic duct. The serosa is momin-green and smooth. Opening reveals green viscous bile with no choleliths identified. The mucosa is beaver-green and velvety, and the wall thickness measures 0.1 cm. Accounts Payable Processor sections are submitted, to include the en face cystic duct margin (blue) in cassette A1. ([id number]) /[facility] 12/15/2020 1712 Local . 02 Pathologist provided ICD-10: K82.8 . 02 CPT . 754033 Performed at: 01 [facility] [address] [place] [address], [place], [place] [id number] MD Jax Pineda MD Phone: [phone] Performed at: 02 [facility] [address] [place], [place] [id number] MD Amparo Monteiro MD Phone: [phone]
[2020-12-14] MEDS: LACTATED RINGERS 1,000 ML 42 ML IV (07:39)
[2020-12-14] MEDS: INDOCYANINE GREEN 25 MG VIAL 5 MG TOP (07:39)
--- NOTE | 2020-12-14 07:39 | PM.HP.1 ---
History of Present Illness History of Present Illness Date Patient Seen: 12/14/20 Time Patient Seen: 07:39 Chief complaint: SDC Narrative: This patient is here for laparoscopic cholecystectomy. To review, she is a 35-year-old woman history of obesity (BMI 32.6) who came in last month with complaint of approximately 7 years of problems with nausea and vomiting. She reports that she ?can not keep anything down.? I asked her how her weight has been, and she says that it has been stable. I asked her home any time she has had to come into the ER for IV fluids, and she says that she quit doing that a while ago. When asked for more details, she says that she is able to keep down mountain dew and coffee with no problem, but tends to vomit almost immediately when she drinks water, tea or juices. She says she is able to eat bland foods such as bread and mashed potatoes, and some meats. She says that she will throw up certain things, and not others, from an entire meal. She says that if she eats a turkey avocado croissant at work, she throws up the lettuce and tomatoes, not the turkey or the bread or the cheese. She says that she literally only vomits the lettuce and tomato and the rest of the food stays in her stomach. I told her I have never heard of this before. She says if she eats a taco the whole thing will come up. She denies any use of marijuana or CBD substances. She says that she is allergic to them. She says she was on 1 occasion exposed to marijuana smoke, and had an allergic reaction with pain in her throat and swelling in her face and throat for a week. She denies any heartburn, acid reflux, epigastric pain, right upper quadrant pain or postprandial pain. She had an extensive workup with Dr. Bernal and Dr. Millan of Gastroenterology, as well as some doctors at [facility] which looks like maybe it was an inpatient workup. She has had an upper endoscopy, a gastric emptying study, right upper quadrant ultrasound, brain MRI, and and evaluation of her vision. She said some abnormality was found in her eye exam in she is supposed to be following up for fluid behind her eyes. The other studies were essentially normal. She was found to have a small hiatal hernia, but otherwise normal findings on her prior endoscopy which was done by Dr. Bernal. She says after the last normal study, which looks like it was the GES, she did not follow up again with Dr. Millan because she felt like everything had been done and was found normal. Interval events: HIDA scan reveals biliary dyskinesia with EF 24% ROS: Positive for fever, chills, fatigue, night sweats, itching, headache, change in vision, voice changes, neck pain, cough, shortness of breath, wheezing, reflux, vomiting, nausea, dizziness, numbness, weakness, nose bleeds. Thirteen system review is otherwise negative other than as mentioned below and in HPI. PE: GENERAL: Well groomed and cooperative. Obese. Appears stated age. Answers questions promptly and appropriately. Vital signs noted. HENT: Normocephalic, atraumatic. Hearing intact. EYES: Conjunctiva pink, sclera white, no periorbital swelling. CARDIOVASCULAR: Regular rate. No pedal edema. RESPIRATORY: Non-tachypneic, breathing comfortably on room air. GASTROINTESTINAL: Abdomen soft and non-distended GENITALURINARY: No flank tenderness. MUSCULOSKELETAL: Equal tone and mass bilaterally. SKIN: Warm, dry, soft, appropriate color for ethnicity. No other lesions, rashes, or wounds. NEURO: Alert and Oriented X 3. No gross sensory deficits, or cognitive issues. PSYCH: Appropriate affect and mood. Patient History Medical History Acute lumbar back pain Acute thoracic back pain Allergies Arthritis Asthma (~2007) Cervical somatic dysfunction Chicken pox Chlamydia (~2004) Chronic back pain (~2011) Chronic GERD Chronic nausea Chronic neck pain Cranial somatic dysfunction Enlarged tonsils Fractures Hiatal hernia History of recurrent ear infection Human papilloma virus (~2004) Migraine headache Pelvic somatic dysfunction Plantar warts Postnasal drip Segmental and somatic dysfunction of abdomen and other regions Segmental and somatic dysfunction of lumbar region Segmental and somatic dysfunction of rib cage Segmental and somatic dysfunction of sacral region Segmental and somatic dysfunction of thoracic region Tension type headache Vision disorder Surgical History Anesthesia Iron disorder Surgical procedure planned Woodman teeth removed Family & Social History Family History Mother No problems noted. Father No problems noted. Grandmother Diabetes mellitus Social History: household members family Tobacco & Substance use: Smoking Status Current every day smoker alcohol intake current alcohol intake frequency holiday/special occasion Substance Use Type does not use Meds Home Medications and Allergies Home Medications Medication Instructions Recorded Confirmed Type epinephrine 0.3 mg/0.3 mL See Rx Instructions IM ONCE #1 each 10/01/18 12/14/20 Rx injection, auto-injector albuterol sulfate 90 mcg/actuation 2 inh INHALATION Q4-6H PRN #18 gram 08/27/20 12/14/20 Rx aerosol inhaler fluticasone 250 mcg-salmeterol 50 1 inh INHALATION BID #60 each 08/27/20 11/27/20 Rx mcg/dose blistr powdr for inhalation montelukast 10 mg tablet 10 mg PO DAILY #90 tab 08/27/20 11/27/20 Rx Allergies Allergy/AdvReac Type Severity Reaction Status Date / Time marijuana Allergy Verified 12/14/20 07:21 Objective Imaging HIDA: Radiologist's impression: [address] [address]Lbxwstb Medicine ReportSigned Patient: Manisha Moya#: [id number]: 1985Acct:[id number]/Sex: 35 / FDate of Service: 10/30/20Loc: NUCMAccession Number: [id number] Procedure: NM HIDA with cck Ordering Provider: Adriane Astorga MD PROCEDURE: NM HIDA WITH CCK PHARMACEUTICAL: 5.0 mCi Tc-99m mebrofenin IV; 1.7 mcg CCK IV. INDICATIONS: Persistent nausea, epigastric pain TECHNIQUE: Following intravenous administration of Tc-99m mebrofenin, sequential anterior abdominal images were obtained. To evaluate the contractile response of the gallbladder in response to Cholecystokinin (CCK), sincalide (0.02 ?g/kg) was administered by slow intravenous infusion approximately 60 minutes after the administration of the radiopharmaceutical. Sequential imaging was continued for 30 minutes after the start of CCK infusion. Gallbladder ejection fraction was calculated. COMPARISON: US, ABDOMEN COMPLETE, 07/25/2016, 10:39. FINDINGS: Biliary scan: There is normal tracer uptake and excretion by the liver. There is normal visualization of the intrahepatic ducts, common bile duct, and gallbladder. There is normal tracer transit into the duodenum. CCK stimulation: There is poor contractile response of the gallbladder to CCK infusion. The calculated gallbladder ejection fraction is 24%; normal values are above 35%. It has been shown that any patient abdominal pain after CCK administration is related to the rate of CCK injection, rather than to any underlying gallbladder disease (Clinical Nuclear Medicine 2012; 37: 63-70. Journal of Nuclear Medicine 2014; 55: 1-9). IMPRESSION: 1. Normal filling of gallbladder. No evidence for acute cholecystitis. 2. Poor contractile response of gallbladder to CCK stimulation. This finding is consistent with gallbladder dyskinesia. Dictated by: Darcie De Leon M.D. on 10/30/2020 at 10:10 Assessment & Plan Assessment and plan (1) Abnormal biliary HIDA scan: Status: Acute (2) Biliary colic: Status: Acute Assessment & Plan narrative: We again discussed biliary dyskinesia and the types of symptoms that this can cause. I explained to her that there is a significant abnormality in her biliary system, which is identified on the HIDA scan. I cannot guarantee that this is the cause of all of her symptoms. However, I do think there is a likely chance that she may feel better and her nausea may be relieved once the gallbladder is removed and she recovers from surgery. I explained to her that if she is still having persistent symptoms after surgery, that further investigations may be needed. Risks and benefits of laparoscopic possible open cholecystectomy were discussed with the patient could risk of bleeding, infection, damage to nearby structures, need for additional procedures, need for open surgery, need for transfer to a tertiary center, bile leak, bile duct injury, need for drain placement, need for prolonged hospital stay. Patient desires to proceed. She is in agreement with proceeding with laparoscopic possible open cholecystectomy. Plan: Proceed to OR for laparoscopic possible open cholecystectomy COVID-19 COVID-19 status: Negative Result date/Date tested (Pos, Neg/Pending): 12/11/20 Time Spent With Patient Time with patient: 15-24 minutes Quality VTE Deep Vein Thrombosis/Pulmonary Embolism Present on Admission: No
[2020-12-14] MEDS: ACETAMINOPHEN 325 MG TABLET 975 MG PO (07:40)
[2020-12-14] MEDS: PIPERACILLIN-TAZO 3.375 GM/50 ML FROZ.PIGGY IV (07:45)
--- NOTE | 2020-12-14 08:10 | SUR.OPER ---
Supine on padded OR bed, head on pillow, safety belt at thigh, arms secured on padded arm boards <90 degrees abduction. Legs uncrossed. Pillow x1 under knees. Tape over blanket to secure lower legs.
[2020-12-14] MEDS: BUPIVACAINE 0.25% W/ EPI (PF) 10 ML VIAL 60 ML INJ (08:20)
--- NOTE | 2020-12-14 09:29 | P.OP_ITS ---
Operative Date/Time/Diagnoses Date of procedure: 12/14/20 Time of procedure: 09:29 Pre-op diagnosis: biliary dyskinesia Post-op diagnosis: other (biliary dyskinesia, chronic cholecystitis) Procedure & Clinicians Procedure: Laparoscopic cholecystectomy Indocyanine cholangiography Same procedure as scheduled: Yes Indications: Biliary dyskinesia, abnormal HIDA scan with ejection fraction 24%, biliary colic, chronic nausea Surgeon: Adriane Blanco Yes if Unassisted: Yes Anesthesia Type: General Operative Notes Findings: Flaccid gallbladder with omental adhesions consistent with chronic inflammatory state Specimen(s): other (Gallbladder and contents) Estimated Blood Loss (mL): 3 Procedure in detail: The patient was brought into the operating room and placed supine on the OR table. Sequential compression devices were placed on both legs and turned on. Appropriate perioperative antibiotics were given prior to the start of surgery. General anesthesia was induced the patient was intubated. The abdomen was prepped and draped in sterile fashion. Surgical time-out was conducted. Local anesthetic was injected under the skin just superior to the umbilicus and a 5 mm vertical incision was made at this site. The umbilical stalk was grasped with a Luis and elevated. A Veress needle was passed through the fascia into proper position. The position was tested with a saline drop test which was appropriate for intra-abdominal Veress needle placement. The abdomen was then insufflated in the usual fashion. Once insufflated to 15 mm Hg the Veress needle was removed and a 5 mm optical trocar was placed under direct vision using a 5 mm 30 degree scope. Once the camera was inside the a bdomen I took a look around. There was no injury from port placement. Two additional ports were placed in a similar fashion in the right upper quadrant and a 10 mm port was placed in the epigastrium. Through the 2 lateral ports the gallbladder was grasped and elevated and the infundibulum was retracted laterally to the patient's right. This exposed the gallbladder hilum and allowed for dissection of the cystic duct and cystic artery. There were some adhesions of omentum to the gallbladder fundus and the surface of the liver. These were taken down with hook cautery. At this point diss ection of the gallbladder hilum was undertaken, and adhesions were taken down from the infundibulum and the surface of the cystic duct and artery. Indocyanine green cholangiography was used to identify the cystic duct and common bile duct. Both were easily seen, and the common bile duct was well away from the area of dissection. Once the cystic duct and artery were completely dissected out I was able to see liver behind and between both structures without any other structures in the way, giving us the critical view of safety. At this point I triply clipped both structures on the patient's side and put a single clip on the gallbladder side of both the cystic duct and artery. Both structures were then divided with laparoscopic Howell. Following this the gallbladder was gradually dissected free from the liver. There was quite a bit of hypervascularity of the scar tissue between the gallbladder and the liver. Several small vessels had to be controlled with clips or cautery. Once the gallbladder was entirely freed, it was placed inside an Endo-Catch bag and removed through the epigastric port site. I did not have to enlarge the epigastric port site in order to get the gallbladder out. Once it was out and passed off to the back table I then took another look inside the abdomen. I suctioned clean any remaining blood or fluid on the lateral side of the liver and in the subhepatic space. There was no active bleeding or leaking of bile from the gallbladder fossa or from the clipped stumps of the cystic duct and artery. At this point an O vicryl on a Rafiq Autumn suture passer was used to close the epigastric port site in the fascia. Insufflation was then removed from the abdomen. A 3 O Vicryl was used to close the subcutaneous layers, and 4 Monocryl in the skin. Additional local anesthetic was infiltrated into each port site. Each port site was sealed with Dermabond. This concluded the procedure. At this point the needle sponge and instrument counts were correct. The gallbladder was passed off the table for pathology. Patient was awakened from anesthesia and extubated. She was transferred to the postanesthesia care unit in stable condition. Complications: none Post-operative Condition: stable Disposition: PACU
[2020-12-14] MEDS: ONDANSETRON 4 MG/2 ML INJ IV (09:41)
[2020-12-14] MEDS: MEPERIDINE 50 MG/ML INJ 12.5 MG IV ×2 (09:42→09:56)
[2020-12-14] MEDS: OXYCODONE IR 5 MG TABLET PO ×2 (10:18→10:52)
== END 2020-12-14 10:54 | disposition home or self-care (01) ==
PROVIDERS: Family Provider Physician Assistant Medical; PCP Family Medicine; Referring Provider Family Medicine; Visit Provider Surgery
PROC: 0FT44ZZ Resection of Gallbladder, Percutaneous Endoscopic Approach (ICD-10-PCS; CPT 47562; principal; 2020-12-14 07:45)
DX: K81.1 Chronic cholecystitis (principal); E66.9 Obesity, unspecified; Z68.32 Body mass index [BMI] 32.0-32.9, adult; F17.210 Nicotine dependence, cigarettes, uncomplicated; K66.0 Peritoneal adhesions (postprocedural) (postinfection); K82.8 Other specified diseases of gallbladder
CPT/HCPCS: 47562; 47563; J1100; J1885; J2175; J2250; J2405; J2543; J2704; J3010

== ENCOUNTER 2021-04-15 16:56 | Emergency (ER) | payer OTHER, SELFPAY ==
[2021-04-15 17:04] VITALS: BP 145/92; PULSE 95; RESP 16; TEMP 37.3; O2SAT 98
--- NOTE | 2021-04-15 17:45 | ED_ITS ---
HPI - Headache <Mainor Coello PA-C - Last Filed: 04/15/21 19:12> General Chief Complaint: Headache Stated Complaint: intense pain from back of neck to face, migraines Time Seen by Provider: 04/15/21 17:21 History of Present Illness HPI Narrative: Manisha presents today with chief complaint headache and neck stiffness that started originally on Monday. She reports that her symptoms have waxed and waned over the last few days and have caused her to miss a few days of work. She has been trying to stretch her neck, taking aspirin occasionally, and DayQuil but this does not seem to give her long relief. She reports that she has a history of headaches similar to this in the past. She denies any significant fever, cough, sore throat, vision changes, dizziness, chest pain, cough, shortness of breath or any other acute concerns or complaints at this time. Related Data Previous Rx's Medication Instructions Recorded epinephrine 0.3 mg/0.3 mL See Rx Instructions IM ONCE #1 each 10/01/18 injection, auto-injector (EpiPen) albuterol sulfate 90 mcg/actuation 2 inh INHALATION Q4-6H PRN #18 gram 08/27/20 aerosol inhaler (Ventolin HFA) fluticasone 250 mcg-salmeterol 50 1 inh INHALATION BID #60 each 08/27/20 mcg/dose blistr powdr for inhalation (Advair Diskus) montelukast 10 mg tablet 10 mg PO DAILY #90 tab 08/27/20 docusate sodium 100 mg capsule 100 mg PO BID #20 cap 12/14/20 oxycodone 5 mg tablet 5 mg PO Q6H PRN #20 tab 12/14/20 Allergies Allergy/AdvReac Type Severity Reaction Status Date / Time marijuana Allergy Verified 12/24/20 14:17 Review of Systems <Mainor Coello PA-C - Last Filed: 04/15/21 19:12> Review of Systems Narrative: As per HPI Patient History <Mainor Coello PA-C - Last Filed: 04/15/21 19:12> Medical History (Updated 04/15/21 @ 18:07 by Mainor Coello PA-C) Abnormal biliary HIDA scan Acute lumbar back pain Acute thoracic back pain Allergies Arthritis Asthma (~2007) Biliary colic Cervical somatic dysfunction Chicken pox Chlamydia (~2004) Chronic back pain (~2011) Chronic GERD Chronic nausea Chronic neck pain Cranial somatic dysfunction Enlarged tonsils Fractures Hiatal hernia History of recurrent ear infection Human papilloma virus (~2004) Migraine headache Pelvic somatic dysfunction Plantar warts Postnasal drip Segmental and somatic dysfunction of abdomen and other regions Segmental and somatic dysfunction of lumbar region Segmental and somatic dysfunction of rib cage Segmental and somatic dysfunction of sacral region Segmental and somatic dysfunction of thoracic region Tension type headache Vision disorder Surgical History Anesthesia Iron disorder Surgical procedure planned [place] teeth removed Family History Mother No problems noted. Father No problems noted. Grandmother Diabetes mellitus Social History marital status: unknown household members: family and children occupational status: employed Smoking Status: Current every day smoker alcohol intake: current substance use type: does not use Smoking Status: Current every day smoker alcohol intake frequency: holidays/special occasions only Substance Use Type: does not use Exam <Mainor Coello PA-C - Last Filed: 04/15/21 19:12> Narrative Exam Narrative: Const General: cooperative, healthy appearing, comfortable and no acute distress Nutritional Appearance: average body habitus and well nourished Orientation: alert and oriented x3 HENMT Head: normal to inspection and normocephalic Ears: hearing grossly normal bilaterally, external ears normal, TM's normal bilaterally, EAC's normal, mastoids normal and no periauricular adenopathy Nose: external nose normal, nares normal and no nasal discharge Face and sinus: normal facial exam, sinuses nontender and face symmetric Mouth: oral mucosae normal, lip normal, tongue normal and moist mucous membranes Teeth and gingiva: dentition normal and gingiva normal Throat: posterior oropharynx normal, uvula midline, no postnasal drainage and no uvular edema Eyes periorbital findings normal, eyelids normal, conjunctivae normal Neck: normal visual inspection, full ROM, no lymphadenopathy, no meningeal signs and supple, posterior cervical muscle tenderness with palpation noted. No midline spinal tenderness. Resp normal respiratory effort, able to speak in complete sentences, not labored and no respiratory distress, clear to auscultation bilaterally, no crackles, no rales and no wheezes Cardio regular rate regular rhythm Heart Sounds: no gallops, no murmurs and no rubs Extrem normal to inspection, no pedal edema and no calf tenderness Neuro Alert and Oriented x3, normal gait, moves all extremities, cranial nerves 2-12 grossly intact, normal coordination of upper extremities with [id number], rapid alternating movement bilaterally UE normal. Initial Vital Signs Initial Vital Signs: Vital Signs Temperature 99.1 F 04/15/21 17:04 Pulse Rate 95 H 04/15/21 17:04 Respiratory Rate 16 04/15/21 17:04 Blood Pressure 145/92 H 04/15/21 17:04 Pulse Oximetry 98 04/15/21 17:04 <Boubacar Woo DO - Last Filed: 04/15/21 23:44> Initial Vital Signs Initial Vital Signs: Vital Signs Temperature 99.1 F 04/15/21 17:04 Pulse Rate 95 H 04/15/21 17:04 Respiratory Rate 16 04/15/21 17:04 Blood Pressure 145/92 H 04/15/21 17:04 Pulse Oximetry 98 04/15/21 17:04 Course <Mainor Coello PA-C - Last Filed: 04/15/21 19:12> Orders Ordered: Discontinued Medications Ketorolac Tromethamine (Ketorolac 30 Mg/Ml Vial) 15 mg IV NOW ONE Stop: 04/15/21 17:49 Last Admin: 04/15/21 18:09 Dose: 15 mg Documented by: ALISON Vital Signs Vital signs: Vital Signs - 8 hr 04/15/21 17:04 04/15/21 19:03 Temperature 99.1 F Pulse Rate 95 H 67 Respiratory Rate 16 16 Blood Pressure 145/92 H 145/92 H Pulse Oximetry 98 100 <Boubacar Woo DO - Last Filed: 04/15/21 23:44> Orders Ordered: Discontinued Medications Ketorolac Tromethamine (Ketorolac 30 Mg/Ml Vial) 15 mg IV NOW ONE Stop: 04/15/21 17:49 Last Admin: 04/15/21 18:09 Dose: 15 mg Documented by: ALISON Vital Signs Vital signs: Vital Signs - 8 hr 04/15/21 17:04 04/15/21 19:03 Temperature 99.1 F Pulse Rate 95 H 67 Respiratory Rate 16 16 Blood Pressure 145/92 H 145/92 H Pulse Oximetry 98 100 MDM - Headache <Mainor Coello PA-C - Last Filed: 04/15/21 19:12> [facility] Narrative Medical decision making narrative: Differential diagnosis includes meningitis, encephalitis, cervical spasm. Patient does not have any significant evidence of infection at this time. She does not have any significant meningeal symptoms. She does have posterior cervical muscular tenderness and the description of her headache is consistent with tension headache. We will treat for tension headache at this time. ER return precautions were discussed with the patient. Patient verbalizes understanding and agrees to plan and has no further concerns at this time. Thank you A [id number] system was used with the dictation of this note. Please disregard any spelling or grammatical errors. Discharge Plan Departure Patient Disposition: Home Clinical Impression: Tension type headache Qualifiers: Headache chronicity pattern: unspecified pattern Intractability: not intractable Qualified Code(s): G44.209 - Tension-type headache, unspecified, not intractable Instructions: DI for Headache Activity Restrictions/Additional Instructions: It was very nice to meet you this evening. Please apply warm compresses to your sore muscles, do light stretching and light activity, use acetaminophen or ibuprofen as needed for pain management. I expect that your symptoms may last for another day or 2 but should improve during that time. If you experience continue symptoms please follow-up with your PCP. Thank you Mainor Coello PA-C Prescriptions: No Action epinephrine [EpiPen] 0.3 mg/0.3 mL auto-injector See Rx Instructions IM ONCE Qty: 1 RF: 0 Ventolin HFA 90 mcg/actuation HFA aerosol inhaler 2 inh INHALATION Q4-6H PRN (Reason: shortness of breath) Qty: 18 RF: 2 Advair Diskus 250-50 mcg/dose blister with device 1 inh INHALATION BID Qty: 60 RF: 5 montelukast 10 mg tablet 10 mg PO DAILY Qty: 90 RF: 3 oxycodone 5 mg tablet 5 mg PO Q6H PRN (Reason: post operative pain) Qty: 20 RF: 0 docusate sodium 100 mg capsule 100 mg PO BID Qty: 20 RF: 0 Referrals: Jaylan Renee DO [Primary Care Provider] - <Boubacar Woo DO - Last Filed: 04/15/21 23:44> Cosign ED Attending Cosignature Attestation: I was immediately available in the department for consultation. This d ocumentation has been reviewed and I agree with assessment and plan. I did not examine the patient myself Supervised by Boubacar Woo, DO
[2021-04-15] MEDS: KETOROLAC 30 MG/ML VIAL 15 MG IV (18:09)
[2021-04-15 19:03] VITALS: BP 145/92; PULSE 67; RESP 16; O2SAT 100
== END 2021-04-15 19:04 | disposition home or self-care (01) ==
PROVIDERS: Emergency Provider Physician Assistant; Family Provider Physician Assistant Medical; PCP Family Medicine
DX: G44.209 Tension-type headache, unspecified, not intractable (principal); M54.2 Cervicalgia
CPT/HCPCS: 36415; 96374; 99284; J1885

== ENCOUNTER → 2023-02-01 11:51 | Outpatient (CLI) | payer OTHER, SELFPAY ==
--- NOTE | 2023-02-01 11:54 | DI.RAD.S_ITS ---
PROCEDURE: XR FOOT RT MIN 3V INDICATIONS: Ankle injury TECHNIQUE: 3 views of the foot were acquired. COMPARISON: None. FINDINGS: Bones: No fractures or dislocations. No suspicious bony lesions. Bipartite medial sesamoid. Soft tissues: No tibiotalar joint effusion. Achilles tendon appears normal. IMPRESSION: No acute osseous abnormality. If clinical symptoms persist or clinical suspicion for pathology is high, a repeat examination in 7-10 days, or advanced imaging such as CT or MRI is suggested for further evaluation. Dictated by: Darcie De Leon M.D. on 02/02/2023 at 8:38 Approved by: Darcie De Leon M.D. on 02/02/2023 at 8:39
--- NOTE | 2023-02-01 11:54 | DI.RAD.S_ITS ---
PROCEDURE: XR ANKLE RT MIN 3V INDICATIONS: Foot injury TECHNIQUE: 3 views of the ankle were acquired. COMPARISON: [facility], CR, XR FOOT RT MIN 3V, 02/01/2023, 11:53. FINDINGS: Bones: No fractures or dislocations. Ankle mortise is normally aligned. No suspicious bony lesions. Soft tissue swelling over the lateral malleolus. Soft tissues: No tibiotalar joint effusion. Achilles tendon appears normal. IMPRESSION: No acute osseous abnormality. Soft tissue swelling over the lateral malleolus. If clinical symptoms persist or clinical suspicion for pathology is high, a repeat examination in 7-10 days, or advanced imaging such as CT or MRI is suggested for further evaluation. Dictated by: Darcie De Leon M.D. on 02/02/2023 at 8:39 Approved by: Darcie De Leon M.D. on 02/02/2023 at 8:39
== END ==
PROVIDERS: Family Provider Physician Assistant Medical; PCP Family Medicine; Referring Provider Nurse Practitioner Family; Visit Provider Nurse Practitioner Family
DX: S99.911A Unspecified injury of right ankle, initial encounter (principal); S99.921A Unspecified injury of right foot, initial encounter; M79.89 Other specified soft tissue disorders; X58.XXXA Exposure to other specified factors, initial encounter
CPT/HCPCS: 73610; 73630

== ENCOUNTER → 2023-02-07 13:42 | Outpatient (CLI) | payer OTHER, SELFPAY ==
--- NOTE | 2023-02-07 13:44 | DI.RAD.S_ITS ---
PROCEDURE: XR FOOT RT MIN 3V INDICATIONS: possible fracture TECHNIQUE: 3 views of the foot were acquired. COMPARISON: [facility], CR, XR FOOT RT MIN 3V, 02/01/2023, 11:53. FINDINGS: Bones: No fractures or dislocations. No suspicious bony lesions. Soft tissues: No tibiotalar joint effusion. IMPRESSION: No acute displaced fracture identified. If symptoms persist, follow-up radiographs and/or CT or MRI may be helpful for further evaluation. Dictated by: Remington Caballero M.D. on 02/08/2023 at 9:01 Approved by: Remington Caballero M.D. on 02/08/2023 at 9:09
== END ==
PROVIDERS: Family Provider Physician Assistant Medical; PCP Family Medicine; Referring Provider Family Medicine; Visit Provider Family Medicine
DX: S99.921A Unspecified injury of right foot, initial encounter (principal); X58.XXXA Exposure to other specified factors, initial encounter
CPT/HCPCS: 73630

== ENCOUNTER → 2023-02-19 09:26 | Outpatient (CLI) | payer OTHER, SELFPAY ==
--- NOTE | 2023-02-19 09:28 | DI.MRI.S_ITS ---
PROCEDURE: MR FOOT RT WO CON INDICATIONS: rolled ankle TECHNIQUE: Noncontrast sagittal T1 spin echo and T2 fast spin echo with fat saturation, long-axis T1 spin echo and STIR, short-axis T1 spin echo and T2 fast spin echo with fat saturation through the forefoot. COMPARISON: [facility], CR, XR ANKLE RT MIN 3V, 02/01/2023, 11:53. [facility], CR, XR FOOT RT MIN 3V, 02/01/2023, 11:53. [facility], CR, XR FOOT RT MIN 3V, 02/07/2023, 13:54. FINDINGS: Image quality: Excellent. Bones and joints: No bone marrow contusions or metatarsal stress fractures. The sesamoid bones appear in expected positions, without internal edema. Minimal degenerative changes at the 1st metatarsophalangeal joint. No intraosseous lesions. Soft tissues: The visualized plantar foot muscles demonstrate normal signal and bulk. Visualized flexor and extensor tendons appear intact, without tenosynovitis. The distal insertions of the peroneus brevis and longus tendons appear intact. The principal Lisfranc ligament appears intact. No soft tissue ganglion cysts or bursal fluid collections. Sagittal images demonstrate no evidence for plantar plate tears. IMPRESSION: 1. No acute trabecular bone injury. No significant ligament or tendon injury is seen in the midfoot or forefoot. 2. 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 Dictated by: Remington Salinas M.D. on 02/20/2023 at 10:47 Approved by: Remington Salinas M.D. on 02/20/2023 at 11:05
--- NOTE | 2023-02-19 09:28 | DI.MRI.S_ITS ---
PROCEDURE: MR ANKLE RT WO CON INDICATIONS: rolled ankle TECHNIQUE: Noncontrast sagittal T1 spin echo and T2 fast spin echo with fat saturation, axial proton density fast spin echo and T2 fast spin echo with fat saturation, coronal T1 spin echo and T2 fast spin echo with fat saturation through the ankle/hindfoot. COMPARISON: [facility], CR, XR ANKLE RT MIN 3V, 02/01/2023, 11:53. [facility], CR, XR FOOT RT MIN 3V, 02/01/2023, 11:53. [facility], CR, XR FOOT RT MIN 3V, 02/07/2023, 13:54. FINDINGS: Image quality: Excellent. Bones and joints: No bone marrow contusions or fractures. No hindfoot coalitions. No osteochondral injuries of the talar dome. Mild soft tissue edema is seen at the lateral ankle. Medial structures: The deep and superficial layers of the deltoid ligament appear intact. The spring ligament components are intact. Mild posterior tibialis tenosynovitis. The flexor digitorum longus and flexor hallucis longus tendons are intact. The posterior tibial neurovascular bundle appears normal within the tarsal tunnel, without extrinsic mass effect. Lateral structures: There is thickening and intermediate signal intensity within the anterior talofibular ligament, consistent prior moderate grade sprain. Similar findings are seen at the calcaneofibular ligament. The posterior talofibular ligament is intact. The anterior and posterior tibiofibular ligaments appear intact. Mild peroneus longus tendinosis. The peroneus brevis tendon is intact. The sinus tarsi demonstrates normal fatty signal. Anterior structures: The tibialis anterior, extensor hallucis longus, and extensor digitorum longus tendons appear intact. The dorsal talonavicular ligament appears intact. Posterior and plantar structures: Achilles tendon is intact. There is mild thickening of the plantar fascia without surrounding edema. No abductor digiti quinti muscle atrophy to suggest Espinosa neuropathy. IMPRESSION: 1. Grade 2-3 sprains of the anterior talofibular ligament and the calcaneofibular ligament. 2. Mild peroneus longus tendinosis. 3. Mild tenosynovitis of the distal posterior tibialis tendon. 4. Mild chronic proximal plantar fasciitis. Approved by: Remington Salinas M.D. on 02/20/2023 at 11:04
== END ==
PROVIDERS: Family Provider Physician Assistant Medical; PCP Family Medicine; Referring Provider Nurse Practitioner Family; Visit Provider Nurse Practitioner Family
DX: S93.491A Sprain of other ligament of right ankle, initial encounter (principal); S93.411A Sprain of calcaneofibular ligament of right ankle, initial encounter; M65.871 Other synovitis and tenosynovitis, right ankle and foot; M72.2 Plantar fascial fibromatosis; M25.571 Pain in right ankle and joints of right foot; X58.XXXA Exposure to other specified factors, initial encounter
CPT/HCPCS: 73718; 73721

== ENCOUNTER → 2023-09-10 16:09 | Outpatient (CLI) | payer OTHER, SELFPAY ==
[2023-09-10 18:06] LABS: Influenza A - CEPHEID Flu A POSITIVE (NEGATIVE); Influenza B - CEPHEID Flu B NEGATIVE (NEGATIVE); Respiratory Syncytial Virus Negative (Negative)
[2023-09-10 18:14] LABS: COVID-19 CEPHEID 4-PLEX PCR Negative (Negative)
== END ==
PROVIDERS: Family Provider Physician Assistant Medical; PCP Family Medicine; Visit Provider Nurse Practitioner Family
DX: R05.1 Acute cough (principal)
CPT/HCPCS: 0241U

== ENCOUNTER 2025-06-02 10:58 | Emergency (ER) | payer OTHER, SELFPAY ==
[2025-06-02 11:24] VITALS: BP 124/82; PULSE 71; RESP 18; TEMP 36.7; O2SAT 99; BMI 34.5
--- NOTE | 2025-06-02 11:43 | DI.US.S_ITS ---
PROCEDURE: US PELVIC COMPLETE INDICATIONS: Continuous vaginal bleeding for 2 months TECHNIQUE: Real-time scanning was performed of the pelvic organs, with image documentation. Additional endovaginal scanning was necessary due to incomplete visualization of the adnexal and endometrial structures by transabdominal scanning. COMPARISON: None. FINDINGS: Uterus: 9 x 4.7 x 5.5 cm. Anteverted positioning. The endometrium is within normal limits at 9 mm. Ovaries: Large right adnexal mass with heterogeneous hyperechoic appearance measures 9.8 x 8.3 cm. The left ovary is mildly prominent at 14 mm. Other: No pathologic free abdominal or pelvic fluid. IMPRESSION: Large right adnexal mass with heterogeneous hyperechoic appearance, possibly a dermoid versus other benign or malignant lesions. Initial further evaluation could be obtained with CT pelvis with contrast to assess for fat and calcifications. Pelvic MRI could be ordered if this is not conclusive. No significant uterine abnormality by ultrasound. Approved by: Darnell Lechuga M.D. on 06/02/2025 at 13:09
--- NOTE | 2025-06-02 11:46 | ED.FEMALEGU ---
HPI - Female Genitourinary General Chief complaint: Vaginal Bleeding Stated complaint: 4 periods in 7 weeks Time Seen by Provider: 06/02/25 11:43 Source: patient Mode of arrival: Ambulatory History of Present Illness HPI Narrative: Patient is a 39-year-old female history of asthma presenting today with ongoing vaginal bleeding. She reports that she has had an waxing and waning of vaginal bleeding for the last 7 weeks. She gets some days of relief but then it quickly restarts. Some days she says it is really heavy going through more than 2 tampons in an hour another days it is just spotting. It does not really last she has a cramping. She is currently sexually active not actively trying to get but not on control, but does not believe she is . Related Data Previous Rx's ?Medication ?Instructions ?Recorded epinephrine 0.3 mg/0.3 mL See Rx Instructions IM ONCE #1 ea 07/05/24 injection, auto-injector (EpiPen) zolpidem 5 mg tablet See Rx Instructions .Route 07/05/24 .COMPLEX #90 tabs cyclobenzaprine 5 mg tablet 5 mg PO TID PRN muscle spasm #30 12/19/24 tabs meloxicam 15 mg tablet 15 mg PO DAILY #30 tabs 12/19/24 Ventolin HFA 90 mcg/actuation 2 inh inhalation Q4-6H PRN 06/02/25 aerosol inhaler (albuterol sulfate) shortness of breath #18 grams fluticasone furoate 100 1 inh inhalation DAILY #60 ea 06/02/25 mcg-vilanterol 25 mcg/dose inhalation powder (Breo Ellipta) Allergies Allergy/AdvReac Type Severity Reaction Status Date / Time marijuana (cannabis) Allergy Verified 06/02/25 11:24 (marijuana) Patient History Medical History Chronic cough Shift work sleep disorder Sleep apnea Acute pain of left knee Acute right ankle pain Somatic dysfunction of lower extremity Secondary insomnia Acute neck pain Biliary colic Abnormal biliary HIDA scan Hiatal hernia Chronic GERD Acute thoracic back pain Acute lumbar back pain Enlarged tonsils Segmental and somatic dysfunction of rib cage Tension type headache Migraine headache Postnasal drip Cranial somatic dysfunction Segmental and somatic dysfunction of sacral region Pelvic somatic dysfunction Segmental and somatic dysfunction of lumbar region Segmental and somatic dysfunction of thoracic region Cervical somatic dysfunction Segmental and somatic dysfunction of abdomen and other regions Vision disorder Plantar warts Asthma (~2007) Allergies Arthritis Fractures Chronic back pain (~2011) Chicken pox History of recurrent ear infection Human papilloma virus (~2004) Chlamydia (~2004) Chronic nausea Surgical History Anesthesia [place] teeth removed Surgical procedure planned Iron disorder Family History Mother No problems noted. Father No problems noted. Grandmother Diabetes mellitus Exam Initial Vital Signs Initial Vital Signs: Vital Signs Temperature 98.1 F 06/02/25 11:24 Pulse Rate 71 06/02/25 11:24 Respiratory Rate 18 06/02/25 11:24 Blood Pressure 124/82 06/02/25 11:24 Pulse Oximetry 99 06/02/25 11:24 Oxygen Delivery Method Room Air 06/02/25 11:24 GENERAL: Alert very well-appearing 39-year-old female and in no acute distress. HEENT: Head atraumatic,EOMI, pupils reactive, face symmetric, moist mucous membranes CARDIOVASCULAR: Regular rate and rhythm without murmurs, rubs or gallops. RESPIRATORY: Breath sounds equal bilaterally, no wheezes rales or rhonchi. ABDOMEN: Soft, nontender. Normoactive bowel sounds all 4 quadrants. No guarding or rebound. EXTREMITIES: Normal range of motion, no clubbing or edema. Neurovascularly intact NEUROLOGICAL: Alert and oriented x4.Normal gait and speech. Cranial nerves II through XII grossly intact. SKIN: Warm, dry, no laceration, no petechiae, no rashes or lesions. Course Orders Ordered: ED Orders 06/02/25 11:43 US pelvic complete Stat 06/02/25 12:04 Complete Blood Count AUTO DIFF Stat Comprehensive Metabolic Panel Stat 06/02/25 12:21 Type and Screen Stat 06/02/25 13:15 CT abdomen pelvis w con Stat 06/02/25 13:19 Urine Microscopic Stat Discontinued Medications Ketorolac Tromethamine (Ketorolac 30 Mg/Ml Vial) 15 mg IV NOW ONE Stop: 06/02/25 11:44 Last Admin: 06/02/25 12:07 Dose: 15 mg Documented By: [facility] Vital Signs Vital signs: Vital Signs - 8 hr 06/02/25 11:24 Temperature 98.1 F Pulse Rate 71 Respiratory Rate 18 Blood Pressure 124/82 Pulse Oximetry 99 Oxygen Delivery Method Room Air MDM - Female Genitourinary Lab Data 06/02/25 12:04 06/02/25 12:04 Labs: Lab Results 06/02/25 06/02/25 Range/Units 12:04 12:21 WBC 8.8 (4.5-11.0) X10^3/uL RBC 4.89 (4.0-5.2) X10^6/uL Hgb 14.0 (12.0-16.0) g/dL Hct 42.5 (36-46) % MCV 86.9 (80-100) fL MCH 28.7 (26-34) PG MCHC 33.0 (30-36) % RDW 14.3 (11.6-14.8) % Plt Count 362 (150-400) X10^3/uL Neut % (Auto) 58.0 (50-75) % Lymph % (Auto) 32.3 (25-40) % Trinity % (Auto) 6.5 (3-14) % Eos % (Auto) 2.8 (2-4) % Baso % (Auto) 0.4 (0-2) % Neut # (Auto) 5100 (9842-9937) /uL Lymph # (Auto) 2800 (6751-9122) /uL Trinity # (Auto) 600 (0-900) /uL Eos # (Auto) 200 (0-450) /uL Baso # (Auto) 0 (0-100) /uL Sodium 136 L (137-145) mmol/L Potassium 4.2 (3.4-5.1) mmol/L Chloride 105 (98-107) mmol/L Carbon Dioxide 23 (22-32) mmol/L BUN 14 (7-17) mg/dL Creatinine 0.68 (0.52-1.04) mg/dL Estimated GFR > 60 (>60) mL/min BUN/Creatinine Ratio 20.6 (6-22) Glucose 92 (70-99) mg/dL Calcium 8.9 (8.4-10.2) mg/dL Total Bilirubin 0.3 (0.2-1.3) mg/dL AST 25 (14-36) IU/L ALT 20 (<35) IU/L Alkaline Phosphatase 78 (38-126) U/L Total Protein 7.6 (6.3-8.2) g/dL Albumin 4.3 (3.5-5.0) g/dL Globulin 3.3 (1.7-4.1) g/dL Albumin/Globulin Ratio 1.3 (1.0-2.8) Blood Type A Negative Antibody Screen Negative Point of Care Testing Test Results Negative Urine Dip Bedside Urine Glucose Negative Bedside Urine Bilirubin - Negative Bedside Urine Ketone - Negative Urine Specific [place] 1.025 Bedside Urine Occult Blood +++ Bedside Urine pH 6.0 Bedside Urine Protein +/- 15 Bedside Urine Urobilinogen - Negative Bedside Urine Nitrite - Negative Bedside Urine Leukocytes - Negative Esterase Imaging Data CT scan - abdomen/pelvis: Radiologist's Impression: PROCEDURE: CT ABDOMEN PELVIS W CON INDICATIONS: right adnexal mass TECHNIQUE: After the administration of intravenous contrast, axial sections acquired from the lung bases to the pubic symphysis. Coronal and sagittal reformats were performed. For radiation dose reduction, the following was used: automated exposure control, adjustment of mA and/or kV according to patient size. COMPARISON: [facility], US, US PELVIC COMPLETE, 06/02/2025, 12:45. FINDINGS: Image quality: Diagnostic. Lower Chest: No significant findings. ABDOMEN: Liver: No solid mass. Gallbladder: Status post cholecystectomy. Biliary ducts: No biliary dilation. Pancreas: No ductal dilation. Spleen: Size is within normal limits. Adrenal Glands: No adrenal nodules. Kidneys and Ureters: No hydronephrosis. No solid mass. No complex renal cystic lesion which requires follow up. Stomach and Bowel: Small hiatal hernia. Normal appendix. Small bowel loops are unremarkable. Peritoneum: No abnormal intraperitoneal fluid. No free air. Ventral Wall: Tiny fat containing periumbilical hernia. Abdominal Nodes: No retroperitoneal or mesenteric adenopathy by size criteria. Vessels: Aorta and inferior vena cava are normal in size. PELVIS: Pelvic Organs: Hypoattenuating lesion in the right adnexa measures 9.8 x 6.3 cm in axial dimensions (112). This corresponds with the finding on same day ultrasound. Coarse calcifications are present. The lesion demonstrates low attenuation centrally (-10 to -20 Hounsfield units). Small peripheral fatty components are seen anteriorly (-150 Hounsfield units). No suspicious left adnexal mass. Anteverted uterus. Bladder: Bladder is underdistended and not well evaluated. Pelvic Nodes: No enlarged lymph nodes. Miscellaneous: No inguinal hernias are seen. Bones: No aggressive osseous abnormality. IMPRESSION: Large right adnexal mass is redemonstrated as seen on same day ultrasound. 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 Given the size, the lesion may put the patient at increased risk for spontaneous ovarian torsion. Recommend OBGYN follow-up. Approved by: Remington Salinas M.D. on 06/02/2025 at 14:34 US - [employer] VEHICLE OPER[employer] ROAD SUPERVISOR: Radiologist's Impression: PROCEDURE: US PELVIC COMPLETE INDICATIONS: Continuous vaginal bleeding for 2 months TECHNIQUE: Real-time scanning was performed of the pelvic organs, with image documentation. Additional endovaginal scanning was necessary due to incomplete visualization of the adnexal and endometrial structures by transabdominal scanning. COMPARISON: None. FINDINGS: Uterus: 9 x 4.7 x 5.5 cm. Anteverted positioning. The endometrium is within normal limits at 9 mm. Ovaries: Large right adnexal mass with heterogeneous hyperechoic appearance measures 9.8 x 8.3 cm. The left ovary is mildly prominent at 14 mm. Other: No pathologic free abdominal or pelvic fluid. IMPRESSION: Large right adnexal mass with heterogeneous hyperechoic appearance, possibly a dermoid versus other benign or malignant lesions. Initial further evaluation could be obtained with CT pelvis with contrast to assess for fat and calcifications. Pelvic MRI could be ordered if this is not conclusive. No significant uterine abnormality by ultrasound. Approved by: Darnell Lechuga M.D. on 06/02/2025 at 13:09 [facility] Narrative Medical decision making narrative: Patient is a healthy 39-year-old female presenting today with abnormal vaginal bleeding. She reports multiple periods in a short time. She is hemodynamically stable blood work has been reviewed she has no leukocytosis or anemia negative for . Ultrasound shows a large dermoid cyst on the right side which is again confirmed by CT Dr. Harley, assessor has reviewed images updated patient's symptoms test results and we will happily see patient in clinic Discharge Plan Departure Patient Disposition: Home Clinical Impression: Dermoid tumor, Vaginal bleeding Instructions: DI for Vaginal Bleeding Activity Restrictions/Additional Instructions: *You have been diagnosed with dermoid tumor and vaginal bleeding *What to do: At this time OBGYN will need to take out this dermoid tumor it is noncancerous. She will also address your abnormal vaginal bleeding at time *Continue to take medications as directed Tylenol Motrin as needed for pain *Follow up with your primary care provider in 2-3 days or call [phone] Dr. Edwards expect a phone call from her off has a next day or so if you do not hear anything please call them *Return to ER if you should have increased vaginal bleeding more than 2 pads in 1 hour increasing pain dizziness lightheadedness or any new, worsening or concerning symptoms Prescriptions: No Action fluticasone furoate-vilanterol [Breo Ellipta] 100-25 mcg/dose blister with device 1 inh inhalation DAILY Qty: 60 5RF Ventolin HFA 90 mcg/actuation HFA aerosol inhaler 2 inh INHALATION Q4-6H PRN (Reason: shortness of breath) Qty: 18 5RF meloxicam 15 mg tablet 15 mg PO DAILY Qty: 30 3RF Rx Instructions: with food cyclobenzaprine 5 mg tablet 5 mg PO TID PRN (Reason: muscle spasm) Qty: 30 2RF zolpidem 5 mg tablet See Rx Instructions .ROUTE .COMPLEX Qty: 90 1RF Rx Instructions: Take 1 tablet by mouth at bedtime as needed for insomnia. Please use this medication little as possible as it is chcf side effects with daily use need to be avoided. epinephrine [EpiPen] 0.3 mg/0.3 mL auto-injector See Rx Instructions IM ONCE Qty: 1 0RF Dose Instruction: IM ONCE; inject into anterolateral area of thigh (preferred); may repeat once in 5-15 minutes if necessary Rx Instructions: 0.3 mL IM ONCE; inject into anterolateral area of thigh (preferred); may repeat once in 5-15 minutes if necessary Referrals: Chinmay Renee DO [Primary Care Provider, Family Practice] Peggy Harley MD [Physician, HUMANITIES DIVISION CHAIR] Stand Alone Forms: Patient Portal/API
[2025-06-02] MEDS: KETOROLAC 30 MG/ML VIAL 15 MG IV (12:07)
[2025-06-02 12:25] LABS: Add Manual Diff / Slide Review NO; Hematocrit 42.5 % (36-46); Hemoglobin 14.0 g/dL (12.0-16.0); Lymphocytes Absolute Auto 2800 /uL (1100-4500); Mean Corpuscular HGB Conc 33.0 % (30-36); Mean Corpuscular Hemoglobin 28.7 PG (26-34); Mean Corpuscular Volume 86.9 fL (80-100); Platelet Count 362 X10^3/uL (150-400)
[2025-06-02 12:47] LABS: Alanine Aminotransferase 20 IU/L (<35); Albumin 4.3 g/dL (3.5-5.0); Albumin Globulin Ratio 1.3 (1.0-2.8); Alkaline Phosphatase 78 U/L (38-126); Blood Urea Nitrogen 14 mg/dL (7-17); Calcium 8.9 mg/dL (8.4-10.2); Carbon Dioxide 23 mmol/L (22-32); Chloride 105 mmol/L (98-107); Estimated Glomerular Filt Rate > 60 mL/min (>60); Globulin 3.3 g/dL (1.7-4.1); Glucose 92 mg/dL (70-99); HEMOLYSIS 25 (0-50); Potassium 4.2 mmol/L (3.4-5.1); Sodium 136 mmol/L (137-145); Total Protein 7.6 g/dL (6.3-8.2)
--- NOTE | 2025-06-02 13:15 | DI.CT.S_ITS ---
PROCEDURE: CT ABDOMEN PELVIS W CON INDICATIONS: right adnexal mass TECHNIQUE: After the administration of intravenous contrast, axial sections acquired from the lung bases to the pubic symphysis. Coronal and sagittal reformats were performed. For radiation dose reduction, the following was used: automated exposure control, adjustment of mA and/or kV according to patient size. COMPARISON: [facility], , US PELVIC COMPLETE, 06/02/2025, 12:45. FINDINGS: Image quality: Diagnostic. Lower Chest: No significant findings. ABDOMEN: Liver: No solid mass. Gallbladder: Status post cholecystectomy. Biliary ducts: No biliary dilation. Pancreas: No ductal dilation. Spleen: Size is within normal limits. Adrenal Glands: No adrenal nodules. Kidneys and Ureters: No hydronephrosis. No solid mass. No complex renal cystic lesion which requires follow up. Stomach and Bowel: Small hiatal hernia. Normal appendix. Small bowel loops are unremarkable. Peritoneum: No abnormal intraperitoneal fluid. No free air. Ventral Wall: Tiny fat containing periumbilical hernia. Abdominal Nodes: No retroperitoneal or mesenteric adenopathy by size criteria. Vessels: Aorta and inferior vena cava are normal in size. PELVIS: Pelvic Organs: Hypoattenuating lesion in the right adnexa measures 9.8 x 6.3 cm in axial dimensions (2/112). This corresponds with the finding on same day ultrasound. Coarse calcifications are present. The lesion demonstrates low attenuation centrally (-10 to -20 Hounsfield units). Small peripheral fatty components are seen anteriorly (- 150 Hounsfield units). No suspicious left adnexal mass. Anteverted uterus. Bladder: Bladder is underdistended and not well evaluated. Pelvic Nodes: No enlarged lymph nodes. Miscellaneous: No inguinal hernias are seen. Bones: No aggressive osseous abnormality. IMPRESSION: Large right adnexal mass is redemonstrated as seen on same day ultrasound. 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 Given the size, the lesion may put the patient at increased risk for spontaneous ovarian torsion. Recommend OBGYN follow-up. Approved by: Remington Salinas M.D. on 06/02/2025 at 14:34
[2025-06-02 16:07] VITALS: BP 117/80; PULSE 64; RESP 16; O2SAT 98
== END 2025-06-02 16:09 | disposition home or self-care (01) ==
PROVIDERS: Emergency Provider Emergency Medicine; PCP Family Medicine
DX: D27.0 Benign neoplasm of right ovary (principal); N93.9 Abnormal uterine and vaginal bleeding, unspecified
CPT/HCPCS: 36415; 74177; 76830; 76856; 80053; 81003; 81025; 85025; 86850; 86900; 86901; 96374; 99284; J1885; Q9967

== ENCOUNTER 2025-06-23 06:28 | Day surgery (SDC) | payer OTHER, SELFPAY ==
[2025-06-09 11:59] VITALS: BMI 34.7
--- NOTE | 2025-06-23 | PATH_ITS ---
[facility] Accession Number: [id number] No. of containers..02 Tissue . 01 Material submitted: . PART A: ovary - RIGHT FALLOPIAN TUBE AND OVARIAN CYST PART B: endometrium - UTERINE CURATTAGE . 01 Diagnosis: PART A: RIGHT FALLOPIAN TUBE AND OVARIAN CYST (WEIGHT 28 GRAMS) Ovary with a benign dermoid cyst (6.5 cm in greatest dimension). Fallopian tube, complete cross sections; negative for significant atypia. . PART B: UTERINE CURETTAGE Weakly proliferative endometrium with patchy stromal breakdown; negative for endometrioid intraepithelial neoplasia or malignancy. [facility] 07/06/2025 1710 Local . 01 Electronically signed: . Mari Osorio MD, Pathologist NPI- [id number] . 01 Gross description: . A. Received in formalin with two patient identifiers and right fallopian tube and ovarian cyst and consists of a cystic ovary and detached fimbriated fallopian tube. The cystic ovary measures 6.5 x 4.2 x 2.1 cm (28 grams) and has a smooth, white, glistening, focally hemorrhagic external surface. The surface of the ovary is inked blue. The specimen is opened to show a unilocular, smooth walled cyst filled with a yellow to white grumous material admixed with hair and sebaceous material. No papillary fronds or excrescences are appreciated. The cyst wall ranges from 0.1 up to 0.5 cm in thickness. The cyst is also ruptured and not intact. The detached fimbriated fallopian tube measures 5.5 cm in length by 0.6 cm in diameter and has a smooth beaver-purple, glistening serosal surface. Sectioning shows a 0.3 cm stellate lumen. Revenue Cycle Consultant sections are submitted: A1-A3: Revenue Cycle Consultant sections of cyst. A4: Revenue Cycle Consultant sections of fallopian tube to include entire fimbriated end. B. Received in formalin with two identifiers and uterine curettage and consists of a 2.2 x 1.0 x 0.3 cm aggregate of beaver-brown, friable, soft tissue admixed with clotted blood and mucus which is filtered and entirely submitted in cassette B1. ([id number]) /MRV 06/24/2025 1852 Local . 01 Pathologist provided ICD-10: N83.201 . 01 CPT . 198676, 931964 Specimen Comment: A courtesy copy of this report has been sent to [facility] Pathology Performed at: [address] [facility] [address] [facility], [place], [place] [id number] MD Jax Pineda MD Phone: [phone]
[2025-06-23] MEDS: LACTATED RINGERS 1,000 ML 42 ML IV (07:13)
[2025-06-23] MEDS: ACETAMINOPHEN IV 1,000 MG/100 ML VIAL 400 MG IV (07:14)
[2025-06-23] MEDS: SCOPOLAMINE 1 PATCH TOP (07:14)
[2025-06-23] MEDS: FAMOTIDINE 20 MG/2 ML VIAL IV (07:14)
[2025-06-23 07:31] VITALS: BP 102/68; PULSE 75; RESP 16; TEMP 36.6; O2SAT 95
--- NOTE | 2025-06-23 07:44 | PM.PREOP ---
Pre-operative Note COVID-19 COVID-19 status: Not tested Interval Note History & Physical reviewed/Exam performed by Physician: Yes Changes to H&P: No ASA Class (for procedural sedation): II
--- NOTE | 2025-06-23 08:45 | SUR.OPER ---
Lithotomy on padded OR bed, head on pillow, arms secured, Legs secured in padded yellow fins stirrups.
[2025-06-23 10:02] VITALS: BP 117/57; PULSE 61; RESP 19; TEMP 36.5; O2SAT 97
--- NOTE | 2025-06-23 10:06 | P.OP_ITS ---
Operative Date/Time/Diagnoses Date of procedure: 06/23/25 Time of procedure: 09:00 Pre-op diagnosis: Right ovarian cyst, abnormal uterine bleeding Post-op diagnosis: same Procedure & Clinicians Procedure: Procedures Operation Date: 06/23/25 07:45 Actual Procedure Side Surgeon p Laparoscopic Ovarian Cystectomy Possible Salpingectomy Right Luz Wallace DO s Hysteroscopy Dilation and curettage Luz Wallace DO Indications: Large right adnexal mass consistent with dermoid tumor, abnormal uterine b leeding for the last few months. Surgeon: Luz Wallace Tar Kettle Runner: Peggy Harley Anesthesia Type: General Operative Notes Findings: Large right ovarian cyst diving down into the pelvis with adhesions to the posterior cul de sac. Copious sebacious material drained from the cyst consistent with a dermoid cyst. normal left tube and ovary. Hysteroscopic findings-- fluffy endometrium c/w disordered endometrial lining, no polyps/fibroids or other pathology Closure Type: not applicable Specimen(s): endometrial curettings and right tube & ovary Applied: none Estimated blood loss (mL): 25 Blood products transfused: none Procedure in detail: After informed consent was obtained, the patient was taken back to the Operative Suite, prepped and draped, and placed in the dorsal lithotomy position. A double sided speculum was used to visualize the cervix and a uterine manipulator was placed. Speculum removed and overgloves removed. Attention turned to the abdomen. A 5mm skin incision was made in the RUQ at Palmar's point. While tenting up the abdominal wall, the Veress needle was inserted without difficulty and the abdomen was insufflated. This was done using appropriate flow and volume of CO2 upt o 15mmhg. The 5mm trocar was then placed without difficulty. The above findings were confirmed. A 12 mm port was then placed approximately 2 cm above the pubic symphysis under direct visualization. One additional port was placed, one on the right lateral aspect of the abdominal wall under direct visualization. Using a grasper, the mass was tented up at the inferior pelvic ligament and the LigaSure was placed across this and several bites were taken with good visualization while ligating. Once the mass had been freed from the IP ligament and uterus it was gently pulled cephalad out of the posterior cul de sac. There was slight adhesions from the rectum to the mass which were gently dissected off. The right ovary including the fallopian tube and mass were then placed in an Endocatch bag and removed through the suprapubic incision. The skin was extended around this incision and the fascia was extended using the Clement scissors. The specimen was removed in pieces in the Endocatch bag through this site and copious drainage of sebaceous material. Prior to desufflation of the abdomen, the site where the left adnexa was removed was visualized to be hemostatic. The left ovary and fallopian tube were visualized and noted to be normal. All the port sites were hemostatic as well. The fascia of the suprapubic incision was then repaired using a running #0 Vicryl stitch on a UR6 needle. The skin was then closed with #4-0 monocryl in a subcuticular fashion. The remaining incisions were also closed with #4-0 monocryl after all instruments were removed and the abdomen was completely desufflated. dermabond was placed on each of the incisions. Attention was then turned to the planned hysteroscopy. The cervix was grasped with a tenaculum and dilated to accomodate the myosure hysteroscope. The hysteroscope was introduced gently and the endometrium was noted be fluffy appearing consistent with a disordered proliferative endometrium but no polyp or fibroids noted. The ostia were visualized bilaterally and noted to appear patent. The hysteroscope was removed and a sharp curette was used to remove endometrial curettings and sent to pathology. The tenaculum was removed and hemostasis noted at the puncture sites. This concluded the procedure. The patient tolerated the procedure well. Sponge, lap, and needle count were x2. She will go home today after recovery from anesthesia and followup postoperatively in the office where we will review path report with her. Complications: none Post-operative Condition: stable Disposition: same day surgery Plan for aftercare: discharge home same day. follow up appt in 2wks for post op visit
[2025-06-23 10:08] VITALS: BP 117/62; PULSE 72; RESP 17; TEMP 36.5; O2SAT 98
[2025-06-23 10:16] VITALS: BP 119/58; PULSE 62; RESP 21; TEMP 36.4; O2SAT 95
[2025-06-23 10:25] VITALS: BP 118/75; PULSE 68; RESP 20; TEMP 36.4; O2SAT 96
[2025-06-23] MEDS: METOCLOPRAMIDE 10 MG/2 ML INJ IV (10:26)
[2025-06-23] MEDS: ONDANSETRON 4 MG/2 ML INJ IV (10:26)
[2025-06-23 11:03] VITALS: BP 116/62; PULSE 63; RESP 18; TEMP 36.2; O2SAT 97
== END 2025-06-23 11:25 | disposition home or self-care (01) ==
PROVIDERS: PCP Family Medicine; Referring Provider Family Medicine; Visit Provider Obstetrics & Gynecology
PROC: (CPT 58662; principal; 2025-06-23 07:45)
PROC: 0UDB8ZZ Extraction of Endometrium, Via Natural or Artificial Opening Endoscopic (ICD-10-PCS; CPT 58558; 2025-06-23 07:45)
DX: D27.0 Benign neoplasm of right ovary (principal); N93.9 Abnormal uterine and vaginal bleeding, unspecified; N73.6 Female pelvic peritoneal adhesions (postinfective); F17.210 Nicotine dependence, cigarettes, uncomplicated
CPT/HCPCS: 58661; 58558; 81025; J0131; J1100; J1171; J1885; J2250; J2405; J2704; J2765; J3010; J3490; J7120

== ENCOUNTER 2025-06-29 10:02 | Emergency (ER) | payer OTHER, SELFPAY ==
[2025-06-29 10:27] VITALS: BP 133/58; PULSE 90; RESP 18; TEMP 37.5; O2SAT 97; BMI 34.9
--- NOTE | 2025-06-29 10:36 | DI.CT.S_ITS ---
PROCEDURE: CT ABDOMEN PELVIS W CON
--- NOTE | 2025-06-29 10:36 | ED_ITS ---
HPI - Abdominal Pain
--- NOTE | 2025-06-29 10:36 | ED.ABDPAIN ---
HPI - Abdominal Pain General Chief Complaint: Abdominal Pain Stated Complaint: surgery Mon-having complications; in pain Time Seen by Provider: 06/29/25 10:32 Source: patient Mode of arrival: Ambulatory History of Present Illness HPI narrative: 39 years old female status post laparoscopic hysterectomy for large right adnexal mass on 06/23/2025 came in today complaining of left lower abdominal pain especially with coughing without fever, chest pain, shortness of breath, diarrhea, constipation, urine problem. She still has some vaginal bleeding. Related Data Previous Rx's ?Medication ?Instructions ?Recorded cyclobenzaprine 5 mg tablet 5 mg PO TID PRN muscle spasm #30 12/19/24 tabs Ventolin HFA 90 mcg/actuation 2 inh inhalation Q4-6H PRN 06/02/25 aerosol inhaler (albuterol sulfate) shortness of breath #18 grams fluticasone furoate 100 1 inh inhalation DAILY #60 ea 06/02/25 mcg-vilanterol 25 mcg/dose inhalation powder (Breo Ellipta) zolpidem 5 mg tablet See Rx Instructions .Route 06/05/25 .COMPLEX #90 tabs oxycodone 5 mg tablet 5 mg PO PACUNOW PRN Mild or 06/23/25 moderate pain 7 days #7 tabs oxycodone 5 mg capsule 5 mg PO Q6H PRN pain #10 caps 06/29/25 Allergies Allergy/AdvReac Type Severity Reaction Status Date / Time marijuana (cannabis) Allergy Verified 06/29/25 10:27 (marijuana) Review of Systems Review of Systems Narrative: Positive for right lower abdominal pain. Vaginal bleeding. Negative for chest pain, shortness of breath, fever, nausea vomiting, diarrhea, constipation, urine problem. Patient History Medical History (Updated 06/29/25 @ 15:34 by Arlin Multani MD) Chronic cough Shift work sleep disorder Sleep apnea Acute pain of left knee Acute right ankle pain Somatic dysfunction of lower extremity Secondary insomnia Acute neck pain Biliary colic Abnormal biliary HIDA scan Hiatal hernia Chronic GERD Acute thoracic back pain Acute lumbar back pain Enlarged tonsils Segmental and somatic dysfunction of rib cage Tension type headache Migraine headache Postnasal drip Cranial somatic dysfunction Segmental and somatic dysfunction of sacral region Pelvic somatic dysfunction Segmental and somatic dysfunction of lumbar region Segmental and somatic dysfunction of thoracic region Cervical somatic dysfunction Segmental and somatic dysfunction of abdomen and other regions Vision disorder Plantar warts Asthma (~2007) Allergies Arthritis Fractures Chronic back pain (~2011) Chicken pox History of recurrent ear infection Human papilloma virus (~2004) Chlamydia (~2004) Chronic nausea Surgical History (Updated 06/09/25 @ 12:36 by Awilda Vásquez RN) Hx laparoscopic cholecystectomy (12/14/20) Anesthesia [place] teeth removed Surgical procedure planned Iron disorder Family History Mother No problems noted. Father No problems noted. Grandmother Diabetes mellitus Social History marital status: unknown household members: family and children occupational status: employed Smoking Status: Current every day smoker alcohol intake: current substance use type: does not use Smoking Status: Current every day smoker alcohol intake frequency: holidays/special occasions only Exam Narrative Exam Narrative: GENERAL: Alert awake without acute distress. HEAD: Atraumatic. Normocephalic. NECK: Trachea midline. Non tender CARDIOVASCULAR: Regular rate and rhythm without murmurs, gallops, or rubs. RESPIRATORY: Clear to auscultation. Breath sounds equal bilaterally. No wheezes, rales, or rhonchi. GASTROINTESTINAL: Mild tenderness to palpation left lower abdomen without guarding or rebound tenderness. Well-healing surgical wounds without discharge, surrounding erythema or fluctuation. EXTREMITIES: No edema or joint tenderness. BACK: Nontender without deformity or crepitance. No flank tenderness. NEURO: AOx3. SKIN: No rash or erythema of visible areas Initial Vital Signs Initial Vital Signs: Vital Signs Temperature 99.5 F 06/29/25 10:27 Pulse Rate 90 06/29/25 10:27 Respiratory Rate 18 06/29/25 10:27 Blood Pressure 133/58 L 06/29/25 10:27 Pulse Oximetry 97 06/29/25 10:27 Oxygen Delivery Method Room Air 06/29/25 10:27 Course Orders Ordered: ED Orders 06/29/25 10:36 CT abdomen pelvis w con Stat EKG-12 Lead Stat 06/29/25 10:50 Ictotest Urine Stat Urine Culture Stat Urine Microscopic Stat 06/29/25 10:53 Complete Blood Count AUTO DIFF Stat Comprehensive Metabolic Panel Stat Lipase Stat Ondansetron HCl (Ondansetron 4 Mg/2 Ml Inj) 4 mg IV NOW PRN PRN Reason: Nausea And Vomiting Last Admin: 06/29/25 13:37 Dose: 4 mg Documented By: TC Ondansetron HCl (Ondansetron 4 Mg Odt) 4 mg PO NOW PRN PRN Reason: Nausea And Vomiting Discontinued Medications Hydromorphone HCl (Hydromorphone Hcl 0.5 Mg/0.5 Ml Syringe) 0.5 mg IV NOW ONE Stop: 06/29/25 13:26 Last Admin: 06/29/25 13:37 Dose: 0.5 mg Documented By: TC Hydromorphone HCl (Hydromorphone Hcl 0.5 Mg/0.5 Ml Syringe) 0.5 mg IV NOW ONE Stop: 06/29/25 15:20 Last Admin: 06/29/25 15:24 Dose: 0.5 mg Documented By: REBEL Vital Signs Vital signs: Vital Signs - 8 hr 06/29/25 10:27 06/29/25 12:36 06/29/25 13:41 Temperature 99.5 F 98.9 F Pulse Rate 90 75 77 Respiratory Rate 18 16 16 Blood Pressure 133/58 L 106/53 L 107/54 L Pulse Oximetry 97 97 95 Oxygen Delivery Method Room Air Room Air 06/29/25 15:19 Temperature Pulse Rate 66 Respiratory Rate 16 Blood Pressure 105/53 L Pulse Oximetry 94 Oxygen Delivery Method Room Air MDM - Abdominal Pain Lab Data 06/29/25 10:53 06/29/25 10:53 Labs: Lab Results 06/29/25 06/29/25 Range/Units 10:50 10:53 WBC 11.3 H (4.5-11.0) X10^3/uL RBC 5.08 (4.0-5.2) X10^6/uL Hgb 14.8 (12.0-16.0) g/dL Hct 43.8 (36-46) % MCV 86.3 (80-100) fL MCH 29.1 (26-34) PG MCHC 33.7 (30-36) % RDW 14.3 (11.6-14.8) % Plt Count 403 H (150-400) X10^3/uL Neut % (Auto) 71.4 (50-75) % Lymph % (Auto) 20.8 L (25-40) % [place] % (Auto) 4.7 (3-14) % Eos % (Auto) 2.4 (2-4) % Baso % (Auto) 0.7 (0-2) % Neut # (Auto) 8000 H (8419-4835) /uL Lymph # (Auto) 2300 (5354-8725) /uL [place] # (Auto) 500 (0-900) /uL Eos # (Auto) 300 (0-450) /uL Baso # (Auto) 100 (0-100) /uL Sodium 137 (137-145) mmol/L Potassium 4.4 (3.4-5.1) mmol/L Chloride 105 (98-107) mmol/L Carbon Dioxide 21 L (22-32) mmol/L BUN 13 (7-17) mg/dL Creatinine 0.89 (0.52-1.04) mg/dL Estimated GFR > 60 (>60) mL/min BUN/Creatinine Ratio 14.6 (6-22) Glucose 100 H (70-99) mg/dL Calcium 9.4 (8.4-10.2) mg/dL Total Bilirubin 0.4 (0.2-1.3) mg/dL AST 28 (14-36) IU/L ALT 25 (<35) IU/L Alkaline Phosphatase 89 (38-126) U/L Total Protein 8.1 (6.3-8.2) g/dL Albumin 4.6 (3.5-5.0) g/dL Globulin 3.5 (1.7-4.1) g/dL Albumin/Globulin Ratio 1.3 (1.0-2.8) Lipase 42 (23-300) U/L Ur Bilirubin Confirm Negative (Negative) Urine RBC 30-100/hpf H (0-5/HPF) Urine WBC 1-5/hpf (0-5/HPF) Ur Squamous Epith Cells 1-5 /hpf (0-5/HPF) Urine Bacteria None seen (None) Ur Culture Indicated? Specimen cultured Vol Urine Centrifuged 10ml (spun) Point of care testing: Urine Dip Bedside Urine Glucose Negative Bedside Urine Bilirubin + 1 Bedside Urine Ketone - Negative Urine Specific [place] 1.020 Bedside Urine Occult Blood +++ Bedside Urine pH 6.0 Bedside Urine Protein + 30 Bedside Urine Urobilinogen - Negative Bedside Urine Nitrite - Negative Bedside Urine Leukocytes + [address] scan - abdomen/pelvis: Radiologist's Impression: PROCEDURE: CT ABDOMEN PELVIS W CON INDICATIONS: Left lower abdominal pain. Status post hysterectomy TECHNIQUE: After the administration of intravenous contrast, axial sections acquired from the lung bases to the pubic symphysis. Coronal and sagittal reformats were performed. For radiation dose reduction, the following was used: automated exposure control, adjustment of mA and/or kV according to patient size. COMPARISON: [facility], CT, CT ABDOMEN PELVIS W CON, 06/02/2025, 13:26. FINDINGS: Image quality: Diagnostic. Lower Chest: No significant findings. ABDOMEN: Liver: No solid mass. Gallbladder: Surgically absent. Biliary ducts: No biliary dilation. Pancreas: No ductal dilation. Spleen: Size is within normal limits. Adrenal Glands: No adrenal nodules. Kidneys and Ureters: No hydronephrosis. No solid mass. No complex renal cystic lesion which requires follow up. Stomach and Bowel: Normal colonic caliber, without significant wall thickening. Peritoneum: No abnormal intraperitoneal fluid. No free air. Ventral Wall: No significant ventral hernia. Abdominal Nodes: No retroperitoneal or mesenteric adenopathy by size criteria. Vessels: Aorta and inferior vena cava are normal in size. PELVIS: Pelvic Organs: The uterus is normal. There is free fluid at the right adnexal surgical bed without organized rim enhancing abscess. There is no significant inflammation of the pelvic fat in this area. The left ovary has a grossly normal appearance. Bladder: No bladder wall thickening, accounting for underdistention. Pelvic Nodes: No enlarged lymph nodes. Miscellaneous: No inguinal hernias are seen. Postsurgical changes of the anterior abdominal wall are shown. Bones: No aggressive osseous abnormality. IMPRESSION: Right adnexal free fluid at the surgical bed without organized abscess. This is within normal limits for the expected postsurgical appearance. Otherwise no CT evidence for the etiology of the patient's symptoms. Of note, if left ovarian pathology is suspected, pelvic ultrasound is recommended as CT is insensitive for the evaluation of ovarian pathology. Dictated by: Peggy Pro M.D. on 06/29/2025 at 10:50 Approved by: Peggy Pro M.D. on 06/29/2025 at 10:55 MDM Narrative Medical decision making narrative: 39 years old female status post laparoscopic hysterectomy for large right adnexal mass on 06/23/2025 came in today complaining of left lower abdominal pain especially with coughing without fever, chest pain, shortness of breath, diarrhea, constipation, urine problem. She still has some vaginal bleeding. Her abdominal exam showed mild tenderness on palpation left lower abdomen without guarding or rebound tenderness or distention. Her CV exam, lung exam were normal. She alert oriented x4 without acute in the ED. Her CBC showed WBC 11.3 otherwise normal CBC. Her CMP was normal. Her pancreas was normal. Her CT scan abdomen and pelvis showed right adnexal free fluid at the surgical bed without organized abscess. Please come back to the emergency room if any worsening symptoms including but not limited to worsening pain, fever, persistent vomiting, worsening bleeding. Please set up primary care doctor for follow up along with your surgeon. Your urine have some blood in the urine likely related with post surgery without infection. Please drink plenty of fluid. Please continue your pain medication. She was sent home with oxycodone. Discharge Plan Departure Patient Disposition: Home Clinical Impression: Abdominal pain, Post-operative pain Instructions: DI for Abdominal Pain-Adult Activity Restrictions/Additional Instructions: Please come back to the emergency room if any worsening symptoms including but not limited to worsening pain, fever, persistent vomiting, worsening bleeding. Please set up primary care doctor for follow up along with your surgeon. Your urine have some blood in the urine likely related with post surgery without infection. Please drink plenty of fluid. Please continue your pain medication. Prescriptions: New oxycodone 5 mg capsule 5 mg PO Q6H PRN (Reason: pain) Qty: 10 0RF No Action fluticasone furoate-vilanterol [Breo Ellipta] 100-25 mcg/dose blister with device 1 inh inhalation DAILY Qty: 60 5RF Ventolin HFA 90 mcg/actuation HFA aerosol inhaler 2 inh INHALATION Q4-6H PRN (Reason: shortness of breath) Qty: 18 5RF zolpidem 5 mg tablet See Rx Instructions .ROUTE .COMPLEX Qty: 90 1RF Rx Instructions: Take 1 tablet by mouth at bedtime as needed for insomnia. Please use this medication little as possible as it is endoscopy technican side effects with daily use need to be avoided. cyclobenzaprine 5 mg tablet 5 mg PO TID PRN (Reason: muscle spasm) Qty: 30 2RF oxycodone 5 mg Tablet 5 mg PO PACUNOW PRN (Reason: Mild or moderate pain) 7 Days Qty: 7 0RF Referrals: Chinmay Renee DO [Primary Care Provider, Family Practice] Stand Alone Forms: Patient Portal/API, Work Release Note
[2025-06-29 11:03] LABS: Add Manual Diff / Slide Review NO; Hematocrit 43.8 % (36-46); Hemoglobin 14.8 g/dL (12.0-16.0); Lymphocytes Absolute Auto 2300 /uL (1100-4500); Mean Corpuscular HGB Conc 33.7 % (30-36); Mean Corpuscular Hemoglobin 29.1 PG (26-34); Mean Corpuscular Volume 86.3 fL (80-100); Platelet Count 403 X10^3/uL (150-400)
[2025-06-29 11:06] LABS: Ictotest Urine Negative (Negative)
[2025-06-29 11:11] LABS: Culture Indicated Urine Specimen Cultured
[2025-06-29 11:16] LABS: Albumin 4.6 g/dL (3.5-5.0); Albumin Globulin Ratio 1.3 (1.0-2.8); Alkaline Phosphatase 89 U/L (38-126); Blood Urea Nitrogen 13 mg/dL (7-17); Carbon Dioxide 21 mmol/L (22-32); Chloride 105 mmol/L (98-107); Estimated Glomerular Filt Rate > 60 mL/min (>60); Globulin 3.5 g/dL (1.7-4.1); HEMOLYSIS < 15 (0-50); Lipase 42 U/L (23-300); Potassium 4.4 mmol/L (3.4-5.1); Sodium 137 mmol/L (137-145); Total Protein 8.1 g/dL (6.3-8.2)
[2025-06-29 11:17] LABS: Glucose 100 mg/dL (70-99)
[2025-06-29 11:18] LABS: Alanine Aminotransferase 25 IU/L (<35); Calcium 9.4 mg/dL (8.4-10.2)
--- NOTE | 2025-06-29 12:09 | PC.NURSE ---
Pt reported she was comfortable talking with this leader writer in lobby for assessment.
[2025-06-29 12:36] VITALS: BP 106/53; PULSE 75; RESP 16; TEMP 37.2; O2SAT 97
[2025-06-29] MEDS: ONDANSETRON 4 MG/2 ML INJ IV (13:37)
[2025-06-29 13:41] VITALS: BP 107/54; PULSE 77; RESP 16; O2SAT 95
[2025-06-29 15:19] VITALS: BP 105/53; PULSE 66; RESP 16; O2SAT 94
[2025-06-29] MEDS: ONDANSETRON 4 MG ODT PO (16:06)
[2025-06-29 16:09] VITALS: BP 129/56; PULSE 77; RESP 15; O2SAT 100
== END 2025-06-29 16:10 | disposition home or self-care (01) ==
PROVIDERS: Emergency Provider Emergency Medicine; PCP Family Medicine
DX: G89.18 Other acute postprocedural pain (principal); R10.32 Left lower quadrant pain
CPT/HCPCS: 36415; 74177; 80053; 81003; 81015; 83690; 85025; 87077; 87086; 87147; 93005; 96374; 96375; 96376; 99284; J1171; J2405; Q9967

== ENCOUNTER → 2025-07-15 11:47 | Outpatient (CLI) | payer OTHER, SELFPAY ==
[2025-07-16 15:13] LABS: Trichomoas vaginalis Negative (Negative)
== END ==
PROVIDERS: PCP Family Medicine; Visit Provider Obstetrics & Gynecology
DX: N39.0 Urinary tract infection, site not specified (principal); N89.8 Other specified noninflammatory disorders of vagina
CPT/HCPCS: 81514; 87086; 87491; 87563; 87591